=== PATIENT | male | born 1975 | race Caucasian/White ===

== ENCOUNTER → 2018-02-14 12:17 | Outpatient (CLI) | payer OTHER, MEDICAID, SELFPAY ==
--- NOTE | 2018-02-14 | DI.RAD.S_ITS ---
PROCEDURE: XR CHEST 2V INDICATIONS: RIGHT CHEST PAIN TECHNIQUE: 2 views of the chest were acquired. COMPARISON: [facility], RG, XR CXR 2V, 09/26/2003, 12:22. FINDINGS: Surgical changes and devices: None. Lungs and pleura: No pleural effusions or pneumothorax. Lungs are clear. Mediastinum: Mediastinal contours are normal. Heart size is normal. Bones and chest wall: No suspicious bony abnormalities. Soft tissues appear unremarkable. IMPRESSION: Normal for age, source of current symptoms is not seen. Dictated by: Neal Bey M.D. on 02/14/2018 at 13:12 Approved by: Neal Bey M.D. on 02/14/2018 at 13:12
== END ==
PROVIDERS: Family Provider Family Medicine; PCP Family Medicine; Visit Provider Family Medicine
DX: R07.9 Chest pain, unspecified (principal)
CPT/HCPCS: 71046

== ENCOUNTER → 2018-11-26 10:26 | Outpatient (CLI) | payer OTHER, MEDICAID, SELFPAY ==
--- NOTE | 2018-11-26 | DI.RAD.S_ITS ---
PROCEDURE: XR FOOT RT MIN 3V INDICATIONS: RIGHT FOOT PAIN TECHNIQUE: 3 views of the foot were acquired. COMPARISON: None. FINDINGS: Bones: No fractures or dislocations. No suspicious bony lesions. Mild first MTP joint degeneration. Prominent plantar calcaneal spur. Diffuse hindfoot and midfoot degenerative spurring. Exostosis projects off the posterior cortex of the distal tibia or fibula on the lateral view only. Irregular appearance of fifth toe proximal phalanx on one view only probably projectional Soft tissues: No tibiotalar joint effusion. Achilles tendon appears normal. IMPRESSION: No fracture identified. If the patient's pain or other symptoms persist, consider further evaluation with MRI Dictated by: Adis Jarrell M.D. on 11/26/2018 at 14:05 Approved by: Adis Jarrell M.D. on 11/26/2018 at 14:09
== END ==
PROVIDERS: Family Provider Family Medicine; PCP Family Medicine; Visit Provider Family Medicine
DX: M79.671 Pain in right foot (principal); M77.31 Calcaneal spur, right foot
CPT/HCPCS: 73630

== ENCOUNTER → 2018-12-11 19:13 | Outpatient (CLI) | payer OTHER, MEDICAID, SELFPAY ==
--- NOTE | 2018-12-11 19:15 | DI.MRI.S_ITS ---
PROCEDURE: MR FOOT RT WO CON INDICATIONS: RIGHT FOOT PAIN TECHNIQUE: Noncontrast sagittal T1 spin echo and T2 fast spin echo with fat saturation, long-axis T1 spin echo and T2 fast spin echo with fat saturation, short-axis T1 spin echo and T2 fast spin echo with fat saturation through the forefoot. COMPARISON: , CR, XR FOOT RT MIN 3V, 11/26/2018, 10:49. FINDINGS: Image quality: Excellent. Bones and joints: There is marked marrow edema present within the medial cuneiform. Possible incomplete, nondisplaced fracture line seen on image 26 series 4 although not confirmed on other pulse sequences. Soft tissues: The visualized plantar foot muscles demonstrate normal signal and bulk. Visualized flexor and extensor tendons appear intact, without tenosynovitis. The distal insertions of the peroneus brevis and longus tendons appear intact. The principal Lisfranc ligament appears intact. No soft tissue ganglion cysts or bursal fluid collections. Sagittal images demonstrate no evidence for plantar plate tears. IMPRESSION: Severe acute versus subacute marrow contusion involving the medial cuneiform. Possible incomplete, nondisplaced fracture line although technically indeterminate. Overlying soft tissue edema. Dictated by: Adis Jarrell M.D. on 12/12/2018 at 9:55 Approved by: Adis Jarrell M.D. on 12/12/2018 at 10:00
== END ==
PROVIDERS: Family Provider Family Medicine; PCP Family Medicine; Visit Provider Family Medicine
DX: M79.671 Pain in right foot (principal); S90.31XA Contusion of right foot, initial encounter
CPT/HCPCS: 73718

== ENCOUNTER → 2019-07-17 10:04 | Outpatient (CLI) | payer OTHER, MEDICAID, SELFPAY ==
--- NOTE | 2019-07-17 | DI.US.S_ITS ---
PROCEDURE: US EXTREMITY NONVASC LOWER LT INDICATIONS: LOCALIZED SWELLING, MASS AND LUMP, LT LOWER LIMB TECHNIQUE: Real-time scanning was performed of the area of current clinical concern, with image documentation. COMPARISON: None. FINDINGS: At the palpable area of left lateral 5 mass an underlying nodular soft tissue abnormality is found measuring up to 2.2 x 5.6 x 12.3 cm, with an appearance most likely represent an underlying lipoma with relatively low internal blood flow. IMPRESSION: The structure seen physically producing mild mass effect at the left lateral thigh appears to represent a lipoma by sonographic appearance. A more accurate assessment could be obtained utilizing contrast enhanced MR scanning. Clinical history of the mass was cyst in differentiating a lipoma from low grade liposarcoma. Surgical consultation may be warranted. Dictated by: Neal Bey M.D. on 07/17/2019 at 11:40 Approved by: Neal Bey M.D. on 07/17/2019 at 12:02
== END ==
PROVIDERS: Family Provider Family Medicine; PCP Family Medicine; Referring Provider Family Medicine; Visit Provider Family Medicine
DX: R22.42 Localized swelling, mass and lump, left lower limb (principal)
CPT/HCPCS: 76882

== ENCOUNTER 2019-08-13 12:26 | Day surgery (SDC) | payer OTHER, MEDICAID, SELFPAY ==
[2019-08-13] VITALS (7 sets, daily range): BP systolic 150–178; BP diastolic 90–118; PULSE 88–105; RESP 12–20; TEMP 36.8–37.1; O2SAT 92–95; BMI 42.4
[2019-08-13] MEDS: LACTATED RINGERS 1,000 ML 42 ML IV (13:25)
--- NOTE | 2019-08-13 14:04 | PM.PREOP ---
Pre-operative Note Interval Note History & Physical reviewed/Exam performed by Physician: Yes Changes to H&P: No
[2019-08-13] MEDS: CEFAZOLIN 2 GM/100 ML FROZ.PIGGY IV (14:17)
--- NOTE | 2019-08-13 14:37 | SUR.OPER ---
Lateral on padded OR bed, head on pillow, gel axillary roll in place, bottom leg bent with gel pad under knee to foot, upper leg straight and supported with pillows. Upper arm supported by pillows and secured over bottom arm to padded arm board. Safety belt at hip, tape over blanket lower legs. Left side up
[2019-08-13] MEDS: BUPIVACAINE 0.25% (PF) VIAL 30 ML INJ (14:42)
--- NOTE | 2019-08-13 15:14 | PM.OP.1 ---
Operative Date/Time/Diagnoses Date of procedure: 08/13/19 Time of procedure: 15:14 Pre-op diagnosis: Left thigh soft tissue mass Post-op diagnosis: same Procedure & Clinicians Procedure: Excision of left thigh soft tissue mass x 15 cm Same procedure as scheduled: Yes Indications: Symptomatic left thigh soft tissue mass x 15 cm Surgeon: Raul Liang Click Yes if Unassisted: No Anesthesia Type: General Operative Notes Findings: Consistent with lipoma Specimen(s): other (Left thigh soft tissue mass) Estimated Blood Loss (mL): 20 Procedure in detail: Patient was brought to the operating room placed supine on the table. Bilateral lower extremity compression devices were applied. He received Ancef prior to skin incision. General anesthesia was induced he was intubated with an endotracheal tube. He was then positioned into the right lateral decubitus position appropriately prepped padded with a wakefield bag and axillary roll. He was then prepped and draped in sterile fashion. Time-out was performed ensure the correct patient procedure necessary equipment within the operating room. He had been previously marked in the preoperative area over the area of concern on the left thigh. Incision was made in skin and the subcutaneous tissues were divided. A approximately 15 cm soft tissue mass consistent with a lipoma was observed above the layer of the fascia. It was excised in its entirety. It was passed off the field labeled as specimen. The wound was irrigated and hemostasis was achieved. And the subcutaneous tissues were closed in layers using Vicryl suture. The skin closed with interrupted nylon sutures. Sterile dressing was placed. He tolerated procedure well 0 extubated and transferred to recovery room in stable condition Complications: none Post-operative Condition: stable Disposition: same day surgery
[2019-08-13] MEDS: ONDANSETRON 4 MG/2 ML INJ IV (15:28)
[2019-08-13] MEDS: OXYCODONE/ACETAMINOPHEN 5/325 TABLET 1 TAB PO (15:28)
--- NOTE | 2019-08-13 15:59 | SUR.PHASEII ---
Stable, pain tolerable. Brother called, pt dressed and left when ready and left in stable condition.
== END 2019-08-13 15:59 | disposition home or self-care (01) ==
PROVIDERS: PCP Family Medicine; Referring Provider Surgery; Visit Provider Surgery
PROC: (CPT 27337; principal; 2019-08-13 13:45)
DX: D17.24 Benign lipomatous neoplasm of skin and subcutaneous tissue of left leg (principal); E66.9 Obesity, unspecified; G47.33 Obstructive sleep apnea (adult) (pediatric); R73.03 Prediabetes; F17.210 Nicotine dependence, cigarettes, uncomplicated; Z68.41 Body mass index [BMI] 40.0-44.9, adult
CPT/HCPCS: 27337; J0330; J0690; J1885; J2250; J2405; J2704; J3010

== ENCOUNTER → 2020-03-20 14:55 | Outpatient (CLI) | payer OTHER, MEDICAID, SELFPAY ==
--- NOTE | 2020-03-20 | DI.RAD.S_ITS ---
PROCEDURE: XR KNEE RT 3V INDICATIONS: KNEE PAIN TECHNIQUE: 4 views of the knee were acquired. COMPARISON: None. FINDINGS: Bones: No acute fractures or dislocations. No suspicious bony lesions. Prior fracture fixation plates and multiple transverse screws are noted along the proximal tibia, both laterally and to a lesser degree medially. Degenerative osteoarthritis at the medial compartment is [id number] and at the lateral compartment is moderately severe. Patellofemoral joint osteoarthritis is moderate best seen at the lateral facet. Soft tissues: A joint effusion or intra-articular loose body is not seen.. No suspicious soft tissue calcifications. IMPRESSION: Prior multiple fracture fixation procedure has been performed, with near normal anatomic alignment established and no evidence of device loosening or disruption. However, presumed posttraumatic degenerative osteoarthritis at the knee joint is moderate in severity overall and most prominent at the lateral compartment. An effusion or loose body is not associated, however. Dictated by: Neal Bey M.D. on 03/20/2020 at 15:42 Approved by: Neal Bey M.D. on 03/20/2020 at 15:44
--- NOTE | 2020-03-20 | DI.RAD.S_ITS ---
PROCEDURE: XR TIBIA FUBULA RT 2V INDICATIONS: RIGHT LEG PAIN TECHNIQUE: 2 views of the tibia and fibula were acquired. COMPARISON: None. FINDINGS: Bones: No acute fractures or dislocations. No suspicious bony lesions. Medial and lateral proximal tibial fixation devices are present establishing virtual anatomic alignment. Soft tissues: No suspicious soft tissue calcifications or masses. IMPRESSION: No device loosening or disruption is seen. Prior medial and lateral proximal tibial fractures have been corrected and have apparently healed in excellent anatomic alignment through the placement of a large lateral and a small medial buttressing plate with multiple transverse screws. Dictated by: Neal Bey M.D. on 03/20/2020 at 15:45 Approved by: Neal Bey M.D. on 03/20/2020 at 15:46
== END ==
PROVIDERS: PCP Family Medicine; Referring Provider Family Medicine; Visit Provider Family Medicine
DX: M25.561 Pain in right knee (principal); M17.11 Unilateral primary osteoarthritis, right knee; M79.604 Pain in right leg; Z87.81 Personal history of (healed) traumatic fracture
CPT/HCPCS: 73562; 73590

== ENCOUNTER → 2021-03-02 09:20 | Outpatient (CLI) | payer OTHER, MEDICAID, SELFPAY ==
[2021-03-02 11:02] LABS: COVID19 -Nasal RAPID Negative (Negative)
== END ==
PROVIDERS: PCP Family Medicine; Visit Provider Surgery
DX: Z01.812 Encounter for preprocedural laboratory examination (principal); Z20.822 Contact with and (suspected) exposure to COVID-19
CPT/HCPCS: 87635; C9803

== ENCOUNTER 2021-03-03 09:50 | Day surgery (SDC) | payer OTHER, MEDICAID, SELFPAY ==
[2021-03-01 07:40] VITALS: BMI 40.4
[2021-03-03] VITALS (9 sets, daily range): BP systolic 125–168; BP diastolic 60–97; PULSE 91–921; RESP 12–18; TEMP 36.3–36.9; O2SAT 90–97; BMI 40.4
[2021-03-03] MEDS: LACTATED RINGERS 1,000 ML 42 ML IV (10:04)
[2021-03-03] MEDS: LACTATED RINGERS 1,000 ML 100 ML IV (13:46)
[2021-03-03] MEDS: GABAPENTIN 300 MG CAPSULE PO (13:51)
[2021-03-03] MEDS: ACETAMINOPHEN 325 MG TABLET 975 MG PO (13:51)
--- NOTE | 2021-03-03 14:45 | PM.PREOP ---
Pre-operative Note Interval Note History & Physical reviewed/Exam performed by Physician: Yes Changes to H&P: No
[2021-03-03] MEDS: ALBUTEROL 2.5 MG/3 ML NEB (ADULT) INH (15:08)
[2021-03-03] MEDS: CEFAZOLIN 1 GM VIAL 3 GM IV (15:29)
[2021-03-03] MEDS: BUPIVACAINE 0.25% (PF) VIAL 30 ML INJ (15:42)
--- NOTE | 2021-03-03 16:15 | PM.OP.1 ---
Operative Date/Time/Diagnoses Date of procedure: 03/03/21 Time of procedure: 16:15 Pre-op diagnosis: Umbilical hernia Post-op diagnosis: same Procedure & Clinicians Procedure: Open umbilical hernia repair Same procedure as scheduled: Yes Indications: Reducible umbilical hernia Surgeon: Raul Liang Click Yes if Unassisted: Yes Anesthesia Type: General Operative Notes Findings: 1.5 cm fascial defect containing viable omentum Estimated Blood Loss (mL): 20 Procedure in detail: Patient was brought to the operating room placed supine on the table. Bilateral lower extremity compression devices were applied. General anesthesia was induced and they were intubated with an endotracheal tube. They received 3 g of Ancef prior to skin incision. They were prepped and draped in sterile fashion. A time-out was performed. A curvilinear incision was made inferior to the umbilicus. The subcutaneous tissues were divided. The umbilical hernia was identified and the hernia sac was dissected off the umbilical skin and circumferentially off of the fascia defect. The hernia sac was sharply opened and contained viable omentum. The omentum was reduced back into the abdomen. Using blunt dissection I carefully carefully freed the hernia sac from beneath the fascia defect in order to accomodate the mesh. The fascia defect was 1.5 cm in maximal diameter. A Bard Ventralex ST hernia patch 4 cm was inserted beneath the fascia defect and above the peritoneum in a sublay position. The mesh was anchored in multiple locations using Ethibond suture to the fascia and the fascial defect was closed over the mesh. The umbilical skin was tacked to the subcutaneous tissues and then the remainder of the subcutaneous tissues were reapproximated using 3 0 Vicry,l skin closed with 4 0 Monocryl followed by the application of Dermabond and Steri-Strips. Sponge instrument count at the end of the operation was correct. Patient tolerated procedure well was extubated and transferred to postoperative care unit in stable condition. Complications: none Post-operative Condition: stable Disposition: same day surgery
[2021-03-03] MEDS: fentaNYL 100 MCG/2 ML INJ IV ×2 (16:17→16:30)
[2021-03-03] MEDS: OXYCODONE IR 5 MG TABLET PO ×2 (16:35→17:09)
--- NOTE | 2021-03-03 16:35 | SUR.PHASEI ---
Recieved to PACU after general anesthesia. Airway patent, self maintained. Report from Dr Chacon and DASHAWN Harris.
--- NOTE | 2021-03-03 16:43 | SUR.PHASEI ---
Instructed on use of incentive spirometer. Pt up to 2500 ml.
--- NOTE | 2021-03-03 16:47 | SUR.PHASEI ---
report given to DASHAWN Alfaro.
== END 2021-03-03 17:23 | disposition home or self-care (01) ==
PROVIDERS: PCP Family Medicine; Referring Provider Surgery; Visit Provider Surgery
PROC: (CPT 49585; principal; 2021-03-03 14:15)
DX: K42.9 Umbilical hernia without obstruction or gangrene (principal); E66.01 Morbid (severe) obesity due to excess calories; G47.33 Obstructive sleep apnea (adult) (pediatric); I10 Essential (primary) hypertension; E11.9 Type 2 diabetes mellitus without complications; F17.200 Nicotine dependence, unspecified, uncomplicated; Z79.84 Long term (current) use of oral hypoglycemic drugs; Z68.41 Body mass index [BMI] 40.0-44.9, adult
CPT/HCPCS: 49585; 82962; C1781; J0330; J0690; J1885; J2250; J2405; J2704; J3010; J7613

== ENCOUNTER → 2021-11-16 11:31 | Outpatient (CLI) | payer OTHER, MEDICAID, SELFPAY ==
--- NOTE | 2021-11-16 11:33 | DI.RAD.S_ITS ---
PROCEDURE: XR CHEST 2V INDICATIONS: Cough TECHNIQUE: 2 views of the chest were acquired. COMPARISON: [facility], CR, XR CHEST 2V, 02/14/2018, 12:02. FINDINGS: Surgical changes and devices: None. Lungs and pleura: Lungs are clear. No pleural effusions or pneumothorax. Mediastinum: Mediastinal contours are normal. Heart size is normal. Bones and chest wall: No suspicious bony abnormalities. Soft tissues appear unremarkable. IMPRESSION: No acute cardiopulmonary process demonstrated radiographically. Dictated by: Buzz Dumont M.D. on 11/16/2021 at 12:06 Approved by: Buzz Dumont M.D. on 11/16/2021 at 12:07
== END ==
PROVIDERS: PCP Family Medicine; Referring Provider Family Medicine; Visit Provider Family Medicine
DX: R05.9 Cough, unspecified (principal)
CPT/HCPCS: 71046

== ENCOUNTER → 2022-02-10 14:20 | Outpatient (CLI) | payer OTHER, MEDICAID, SELFPAY ==
--- NOTE | 2022-02-10 | DI.RAD.S_ITS ---
PROCEDURE: XR KNEE RT 3V INDICATIONS: Pain in right knee TECHNIQUE: 3 views of the knee were acquired. COMPARISON: [facility], , XR KNEE RT 3V, 03/20/2020, 14:54. FINDINGS: Bones: There is prior internal fixation of proximal tibia with surgical hardware positions grossly unchanged from prior study. No evidence of hardware loosening or failure. No acute fractures or dislocations. Irwi-ri-iudxsysv tricompartmental osteoarthritis is seen. No suspicious bony lesions. Soft tissues: There is small to moderate suprapatellar joint effusion. Calcifications are noted along medial aspect of right knee joint suggestive of old injury involving medial collateral ligament unchanged from prior study. IMPRESSION: Prior fixation of proximal tibial shaft. No acute fracture or dislocation. No gross hardware complication. Xcke-eo-qtvjfaiu tricompartmental osteoarthritis and moderate suprapatellar joint effusion. Dictated by: Miguel A Sanchez M.D. on 02/10/2022 at 17:05 Approved by: Miguel A Sanchez M.D. on 02/10/2022 at 17:06
== END ==
PROVIDERS: PCP Family Medicine; Referring Provider Family Medicine; Visit Provider Family Medicine
DX: M25.561 Pain in right knee (principal); M17.11 Unilateral primary osteoarthritis, right knee; M25.461 Effusion, right knee
CPT/HCPCS: 73562

== ENCOUNTER → 2022-04-28 12:21 | Outpatient (CLI) | payer OTHER, MEDICAID, SELFPAY ==
--- NOTE | 2022-04-28 12:25 | DI.RAD.S_ITS ---
PROCEDURE: XR RIBS BI MIN 4V W CXR1V INDICATIONS: CHEST TECHNIQUE: For views of the bilateral ribs were acquired, along with a single view chest. COMPARISON: None. FINDINGS: Surgical changes and devices: None. Bones and chest wall: No fractures or dislocations. No suspicious bony lesions. Overlying soft tissues appear unremarkable. Lungs and pleura: No pleural effusions or pneumothorax. Lungs appear clear. Mediastinum: Mediastinal contours appear normal. Heart size is normal. IMPRESSION: Patient motion during image acquisition of the individual rib plain films results in relatively poor quality visualization, without fracture found. If unusual symptoms persist follow-up delayed plain films may allow visualization of a currently not visualized fracture. No pneumothorax suspected. Dictated by: Neal Bey M.D. on 04/29/2022 at 16:14 Approved by: Neal Bey M.D. on 04/29/2022 at 16:16
== END ==
PROVIDERS: PCP Family Medicine; Referring Provider Registered Nurse; Visit Provider Registered Nurse
DX: S20.20XA Contusion of thorax, unspecified, initial encounter (principal)
CPT/HCPCS: 71111

== ENCOUNTER → 2022-05-09 12:38 | Outpatient (CLI) | payer OTHER, MEDICAID, SELFPAY ==
[2022-05-09 13:18] LABS: Add Manual Diff / Slide Review NO; Basophils Absolute Auto 100 /uL (0-100); Basophils Percent Auto 0.7 % (0-2); Eosinophils Absolute Auto 100 /uL (0-450); Eosinophils Percent Auto 0.8 % (2-4); Hematocrit 43.1 % (41-53); Lymphocytes Absolute Auto 1700 /uL (1100-4500); Lymphocytes Percent Auto 19.1 % (25-40); Mean Corpuscular HGB Conc 34.9 % (30-36); Mean Corpuscular Hemoglobin 36.4 PG (26-34); Mean Corpuscular Volume 104.4 fL (80-100); Monocytes Absolute Auto 900 /uL (0-900); Monocytes Percent Auto 9.5 % (3-14); Neutrophils Absolute Auto 6200 /uL (1500-7000); Neutrophils Percent Auto 69.9 % (50-75); Platelet Count 315 X10^3/uL (150-400); Red Blood Cell Count 4.13 X10^6/uL (4.5-5.9); Red Cell Distribution Width 13.8 % (11.6-14.8); White Blood Cell Count 8.9 X10^3/uL (4.5-11.0)
== END ==
PROVIDERS: PCP Family Medicine; Referring Provider Family Medicine; Visit Provider Family Medicine
DX: K62.5 Hemorrhage of anus and rectum (principal)
CPT/HCPCS: 36415; 85025

== ENCOUNTER → 2022-05-16 10:03 | Outpatient (CLI) | payer OTHER, MEDICAID, SELFPAY ==
[2022-05-16 11:24] LABS: COVID19 -Nasal RAPID Negative (Negative)
== END ==
PROVIDERS: PCP Family Medicine; Visit Provider Surgery
DX: Z20.822 Contact with and (suspected) exposure to COVID-19 (principal); Z01.812 Encounter for preprocedural laboratory examination
CPT/HCPCS: 87635; C9803

== ENCOUNTER 2022-05-17 10:26 | Day surgery (SDC) | payer OTHER, MEDICAID, SELFPAY ==
--- NOTE | 2022-05-17 | PATH_ITS ---
[facility] Accession Number: [id number] . 01 Material submitted: . PART A: rectum - RECTUM PART B: colon - DESCENDING COLON. Modifiers: descending . 01 Diagnosis: A. Rectum, Biopsy: Hyperplastic polyp. . B. Descending Colon, Biopsy: Tubular adenoma. The excision appears complete. [facility] 05/19/2022 1015 Local . 01 Electronically signed: . Lisette Beatty MD, Pathologist NPI- [id number] . 01 Gross description: . Part A: RECTUM: Received in formalin is 1 fragment(s) of potter, soft tissue measuring 0.3 x 0.3 x 0.3 cm submitted entirely in 1 cassette(s) Part B: DESCENDING COLON: Received in formalin is 1 fragment(s) of potter, soft tissue measuring 1.3 x 0.6 x 0.6 cm submitted entirely in 1 cassette(s) /LANI 05/18/2022 1835 Local . 01 Pathologist provided ICD-10: D12.4 . 01 CPT . 546370, [id number] Performed at: 01 [facility] [address] [place] [address] [id number] MD Fredy Wolf MD Phone: [phone]
[2022-05-17 11:09] VITALS: BP 146/98; PULSE 105; RESP 20; TEMP 36.2; O2SAT 96; BMI 36.9
[2022-05-17] MEDS: LACTATED RINGERS 1,000 ML 200 ML IV (11:16)
--- NOTE | 2022-05-17 12:24 | PM.HP.1 ---
History of Present Illness History of Present Illness Date Patient Seen: 05/17/22 Time Patient Seen: 12:24 Chief complaint: Colonoscopy Narrative: The patient presents for colorectal screening. They have never had any previous examination for such. No personal or family history of colon cancer. On further history denies any recent gastrointestinal symptoms. No nausea, vomiting, abdominal pain, loss of appetite, unexplained weight loss, change in bowel habits, diarrhea, constipation, melena, hematochezia, or bright red blood per rectum. 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 traumatic injury Morbid obesity with body mass index (BMI) of 40.0 to 49.9 Nocturnal hypoxemia Obstructive sleep apnea Pre-diabetes Snoring Surgical History (Updated 03/01/21 @ 07:51 by Saritha Linn RN) History of surgery S/P excision of lipoma (08/13/19) Family & Social History Social History: household members family Tobacco & Substance use: Tobacco type cigarettes Smoking Status Current every day smoker alcohol intake current alcohol intake frequency a few times a week Substance Use Type marijuana Meds Home Medications and Allergies Home Medications Medication Instructions Recorded Confirmed Type hydrocodone 5 mg-acetaminophen 325 1 tab PO Q4HR PRN Pain (Scale 02/21/19 05/17/22 History mg tablet Score 1-3) celecoxib 200 mg capsule 200 mg PO DAILY 05/17/22 05/17/22 History fluoxetine 20 mg capsule 20 mg PO DAILY 05/17/22 05/17/22 History fluoxetine 40 mg capsule 40 mg PO DAILY 05/17/22 05/17/22 History glipizide 10 mg tablet, extended 10 mg PO DAILY 05/17/22 05/17/22 History release 24 hr losartan 100 mg tablet 100 mg PO DAILY 05/17/22 05/17/22 History trazodone 50 mg tablet 50 mg PO DAILY 05/17/22 05/17/22 History Allergies Allergy/AdvReac Type Severity Reaction Status Date / Time No Known Drug Allergies Allergy Verified 05/17/22 10:56 Exam Vital Signs (past 8 hours): - 05/17/22 11:09 Temperature 97.1 F L Pulse Rate 105 H Respiratory Rate 20 Blood Pressure 146/98 H Pulse Oximetry 96 Oxygen Delivery Method Room Air Oxygen Delivery Method Room Air Narrative Exam Narrative: General adult male alert oriented no acute distress Abdomen soft nontender nondistended Assessment & Plan Assessment & Plan narrative: The patient requires colorectal screening and colonoscopy is recommended. Technical details were discussed. Risks, benefits, alternatives explained. Risks including but not limited to myocardial infarction, aspiration, bleeding, pain, missed lesion, incomplete examination, need for further radiographic studies, colonic perforation, and need for major abdominal surgery were discussed. All questions were answered to their satisfaction, and they are in agreement with this plan. Time Spent With Patient Critical Care time: I spent a total of [] minutes of critical care time on this patient's care today; this time is exclusive of procedural time.
--- NOTE | 2022-05-17 12:25 | PM.OP.COLON ---
Operative Date/Time/Diagnoses Date of procedure: 05/17/22 Time of procedure: 12:25 Pre-op diagnosis: Screening colonoscopy Post-op diagnosis: same Procedure & Clinicians Study performed: Colonoscopy Same procedure as scheduled: Yes Indications: Screening Surgeon: Raul Liang Procedure Notes Procedure in detail: The history and physical was performed/updated and the patient is ASA class is 3. The procedure was discussed in detail with the patient. Potential risks complications including infection, bleeding, missed diagnosis, perforation, need for surgery, and were explained. Their questions were answered and informed consent was obtained. Patient was brought to the procedure room and placed standard monitoring equipment. The patient's vital signs were monitored continuously throughout the entire procedure. Prior to starting time-out was performed. The patient was placed in the left lateral recumbent position. Procedural sedation was administered by anesthesia. Examination began with a thorough inspection of the perianal area there was no evidence of fissures, fistulae, external hemorrhoids or cutaneous malignancy. The colonoscopy scope was then placed into the anal canal and was advanced to the cecum, which was identified by the ileocecal valve, the appendiceal orifice and the confluence of the taenia. The scope was then slowly withdrawn examining colon thoroughly in all directions, irrigating it of any residual stool. FINDINGS 1. Rectum-5 mm polyp removed with forceps. 2.descending colon. 1.5 cm pedunculated polyp on a long stalk remove with hot snare. Area distal to the polyp was tattooed with ink. The patient tolerated the procedure well. They will be discharged once criteria are met. The prep was of good/excellent quality. The withdrawl time was 15 minutes. Specimen(s): other (Rectal and descending colon polyps) Complications: none Impression: Colonic polyps Post-procedure Plan for aftercare: Follow-up dependent on pathology findings Disposition: same day surgery
[2022-05-17 12:59] VITALS: BP 116/80; PULSE 84; RESP 22; TEMP 36.4; O2SAT 94
[2022-05-17 13:05] VITALS: BP 146/92; PULSE 91; RESP 16; O2SAT 95
[2022-05-17 13:11] VITALS: BP 147/84; PULSE 88; RESP 18; O2SAT 94
[2022-05-17 13:17] VITALS: BP 148/99; PULSE 86; RESP 16; TEMP 36.7; O2SAT 95
== END 2022-05-17 13:33 | disposition home or self-care (01) ==
PROVIDERS: PCP Family Medicine; Referring Provider Surgery; Visit Provider Surgery
PROC: 0DJD8ZZ Inspection of Lower Intestinal Tract, Via Natural or Artificial Opening Endoscopic (ICD-10-PCS; CPT 45378; principal; 2022-05-17 11:45)
DX: Z12.11 Encounter for screening for malignant neoplasm of colon (principal); G47.33 Obstructive sleep apnea (adult) (pediatric); D12.4 Benign neoplasm of descending colon; K62.1 Rectal polyp
CPT/HCPCS: 45385; 45380; 45381; J2704; J3010

== ENCOUNTER 2023-01-20 00:06 | Inpatient (IN) | payer OTHER, MEDICAID, SELFPAY ==
[2023-01-20] VITALS (20 sets, daily range): BP systolic 103–198; BP diastolic 55–104; PULSE 78–113; RESP 15–28; TEMP 36.5–39.6; O2SAT 92–99; BMI 35.5; BMI 37.3
--- NOTE | 2023-01-20 00:10 | DI.RAD.S_ITS ---
PROCEDURE: XR CHEST 1V INDICATIONS: suspected sepsis TECHNIQUE: One view of the chest was acquired. COMPARISON: [facility], CR, XR CHEST 2V, 11/16/2021, 11:20. FINDINGS: Surgical changes and devices: None. Lungs and pleura: Lungs are clear. No pleural effusions or pneumothorax. Mediastinum: Mediastinal contours appear normal. Heart size is normal. Bones and chest wall: No suspicious bony lesions. Overlying soft tissues appear unremarkable. IMPRESSION: 1. No acute cardiopulmonary disease. Dictated by: Fredy Delong M.D. on 01/20/2023 at 0:59 Approved by: Fredy Delong M.D. on 01/20/2023 at 1:00
[2023-01-20] MEDS: SODIUM CHLORIDE 0.9% 1,000 ML 1000 ML IV (00:15)
[2023-01-20 00:31] LABS: INR 1.2 (0.9-1.3); Prothrombin Time 13.5 SECONDS (10.1-12.7)
[2023-01-20 00:33] LABS: Add Manual Diff / Slide Review NO; Basophils Absolute Auto 100 /uL (0-100); Basophils Percent Auto 0.3 % (0-2); Eosinophils Absolute Auto 0 /uL (0-450); Hematocrit 40.6 % (41-53); Hemoglobin 14.2 g/dL (13.5-17.5); Lymphocytes Absolute Auto 1000 /uL (1100-4500); Mean Corpuscular Hemoglobin 35.3 PG (26-34); Mean Corpuscular Volume 100.9 fL (80-100); Monocytes Absolute Auto 800 /uL (0-900); Monocytes Percent Auto 3.9 % (3-14); Neutrophils Absolute Auto 18900 /uL (1500-7000); Neutrophils Percent Auto 90.8 % (50-75); PTT Partial Thromboplastin Tim 29 SECONDS (26-36); Platelet Count 262 X10^3/uL (150-400); Red Blood Cell Count 4.02 X10^6/uL (4.5-5.9); Red Cell Distribution Width 12.6 % (11.6-14.8); White Blood Cell Count 20.8 X10^3/uL (4.5-11.0)
[2023-01-20 00:36] LABS: Alanine Aminotransferase 37 IU/L (<50); Albumin 3.7 g/dL (3.5-5.0); Albumin Globulin Ratio 1.1 (1.0-2.8); Alkaline Phosphatase 86 U/L (38-126); Aspartate Aminotransferase 38 IU/L (17-59); BUN Creatinine Ratio 17.6 (6-22); Bilirubin Total 0.4 mg/dL (0.2-1.3); Blood Urea Nitrogen 16 mg/dL (9-20); Calcium 7.8 mg/dL (8.4-10.2); Carbon Dioxide 24 mmol/L (22-32); Chloride 94 mmol/L (98-107); Estimated Glomerular Filt Rate > 60 mL/min (>60); Globulin 3.4 g/dL (1.7-4.1); Glucose 139 mg/dL (70-100); HEMOLYSIS 39 (0-50); Lipase 98 U/L (23-300); Potassium 3.1 mmol/L (3.4-5.1); Sodium 131 mmol/L (137-145); Total Protein 7.1 g/dL (6.3-8.2)
[2023-01-20 00:39] LABS: Lactate (Lactic Acid) 4.2 mmol/L (0.7-2.1)
[2023-01-20] MEDS: KETOROLAC 30 MG/ML VIAL 15 MG IV (00:52)
[2023-01-20] MEDS: ACETAMINOPHEN 325 MG TABLET 975 MG PO (00:53)
[2023-01-20] MEDS: SODIUM CHLORIDE 0.9% 1156.66 ML IV (00:55)
[2023-01-20 00:56] LABS: Creatine Kinase 79 U/L (55-170)
[2023-01-20] MEDS: PIPERACILLIN/TAZO 4.5 GM in SODIUM CHLORIDE 0.9% 100 ML IV (00:56)
[2023-01-20 00:57] LABS: Bacteria Urine None Seen; Culture Indicated Urine Cult Not Indicated; RBC Urine None Seen (0-5/HPF); Squamous Epithelial Cell Urine None Seen (0-5/HPF); WBC Urine 0-1/HPF (0-5/HPF)
[2023-01-20 01:08] LABS: Ur Creatinine Normal (Normal); Ur Specific Gravity Normal (Normal); Urine pH Normal (Normal)
[2023-01-20 01:09] LABS: UR Morphine/Opiate cutoff 300 Positive (Negative); Urine Amphetamines Negative (Negative); Urine Barbiturates Negative (Negative); Urine Benzodiazepines Negative (Negative); Urine Cocaine Negative (Negative); Urine MDMA Negative (Negative); Urine Methadone Negative (Negative); Urine Methamphetamines Negative (Negative); Urine Oxycodone Negative (Negative); Urine Phencyclidine Negative (Negative); Urine Tetrahydrocannabinol Positive (Negative); Urine Tricyclic Antidepressant Negative (Negative)
[2023-01-20 01:09] LABS: Troponin I 0.012 ng/mL (0.01-0.034)
--- NOTE | 2023-01-20 01:18 | DI.CT.S_ITS ---
PROCEDURE: CT ABDOMEN PELVIS W CON INDICATIONS: sepsis back pain ab pain TECHNIQUE: After the administration of IV contrast, axial sections were acquired from the lung bases to the pubic symphysis. Coronal and sagittal reformats were performed. For radiation dose reduction, the following was used: automated exposure control, adjustment of mA and/or kV according to patient size. COMPARISON: None. FINDINGS: Image quality: Excellent. Lung bases: Unremarkable. Heart: Heart is normal in size. ABDOMEN: Liver: There is hypoattenuation of the liver consistent with fatty infiltration. Gallbladder: Within normal limits without calcified gallstones. Biliary ducts: No biliary ductal dilatation. Pancreas: Unremarkable. Spleen: Normal in size. Adrenal Glands: No adrenal nodules. Kidneys and Ureters: No hydronephrosis. There is mild nonspecific perinephric stranding. Stomach and Bowel: Stomach, small bowel loops, and colon are normal in caliber and wall thickness. No pericecal inflammatory changes to suggest appendicitis. There is colonic diverticulosis without acute diverticulitis. Peritoneum: No abnormal intraperitoneal fluid. No free air. Ventral Wall: No hernia. Abdominal Nodes: No retroperitoneal or mesenteric adenopathy by size criteria. Vessels: Aorta and inferior vena cava are normal in size. PELVIS: Pelvic Organs: Unremarkable. Bladder: Unremarkable. Pelvic Nodes: No enlarged lymph nodes. Miscellaneous: No inguinal hernias are seen. Bones: Visualized osseous structures demonstrate no suspicious focal lesions. IMPRESSION: 1. Mild nonspecific perinephric stranding without hydronephrosis. Recommend correlation clinically for possible pyelonephritis. 2. Elsewhere, no definite acute intra-abdominal abnormality. 3. Colonic diverticulosis without acute diverticulitis. 4. Hepatic steatosis. Dictated by: Fredy Delong M.D. on 01/20/2023 at 2:00 Approved by: Fredy Delong M.D. on 01/20/2023 at 2:03
--- NOTE | 2023-01-20 01:19 | ED.FEVER ---
HPI - Fever General Chief Complaint: Fever Stated Complaint: N, dizzy, fever Time Seen by Provider: 01/20/23 00:40 Source: patient and EMS Mode of arrival: EMS History of Present Illness HPI Narrative: Patient is a 47-year-old male history of diabetes hypertension presenting today with her and body aches some left thigh pain. He reports that he was well yesterday and well this morning it came quite suddenly. He was very sleepy he has a fever. He really is complaining of some left thigh pain. There is some mild redness there he denies any injury he is not sure why that would hurt. He denies any cough headache or neck pain. No sore throat. Minimal abdominal pain. He generally does not feel well. He reports that his right leg was crushing injury many years ago he takes some opiate medication for that as well. He has a fever of 103.3 and as tachycardic initially in the ED. Related Data Home Medications Medication Instructions Recorded Confirmed hydrocodone 5 mg-acetaminophen 325 1 tab PO Q4HR PRN Pain (Scale 02/21/19 01/20/23 mg tablet Score 1-3) fluoxetine 20 mg capsule 20 mg PO DAILY 05/17/22 01/20/23 fluoxetine 40 mg capsule 40 mg PO DAILY 05/17/22 01/20/23 trazodone 50 mg tablet 50 mg PO DAILY 05/17/22 01/20/23 Allergies Allergy/AdvReac Type Severity Reaction Status Date / Time No Known Drug Allergies Allergy Verified 05/17/22 10:56 Review of Systems Review of Systems ROS Unobtainable: All systems reviewed & are unremarkable except as noted in HPI and below Patient History Medical History (Updated 01/20/23 @ 03:20 by Zina Crisostomo DO) Chronic pain after traumatic injury Morbid obesity with body mass index (BMI) of 40.0 to 49.9 Nocturnal hypoxemia Obstructive sleep apnea Pre-diabetes Snoring Surgical History (Updated 03/01/21 @ 07:51 by Saritha Linn RN) History of surgery S/P excision of lipoma (08/13/19) Social History household members: family Smoking Status: Current every day smoker alcohol intake: current Smoking Status: Current every day smoker alcohol intake frequency: a few times a week Substance Use Type: marijuana Exam Initial Vital Signs Initial Vital Signs: Vital Signs Temperature 103.3 F H 01/20/23 00:07 Pulse Rate 113 H 01/20/23 00:07 Respiratory Rate 26 H 01/20/23 00:07 Blood Pressure 154/74 H 01/20/23 00:07 Pulse Oximetry 98 01/20/23 00:07 Oxygen Delivery Method Room Air 01/20/23 00:07 GENERAL: Alert 47-year-old male appears to not feel well HEENT: Head atraumatic,EOMI, pupils reactive, face symmetric, moist mucous membranes CARDIOVASCULAR: Regular rate and rhythm without murmurs, rubs or gallops. RESPIRATORY: Breath sounds equal bilaterally, no wheezes rales or rhonchi. ABDOMEN: Soft, nontender. Normoactive bowel sounds all 4 quadrants. No guarding or rebound. EXTREMITIES: Normal range of motion, no clubbing or edema. Neurovascularly intact NEUROLOGICAL: Alert and oriented x4.Normal gait and speech. SKIN: Chronic venous stasis noted on bilateral legs. Left leg is mildly more red than the right. Right medial thigh there is a small patch of erythema there is no abscess it is tender to touch it does not extend into the groin Course Orders Ordered: ED Orders 01/20/23 00:10 XR chest 1V Stat Complete Blood Count AUTO DIFF Stat Comprehensive Metabolic Panel Stat Lactate (Lactic Acid) Stat Lipase Stat PTT Partial Thromboplastin Bertin Stat Procalcitonin Stat Prothrombin Time INR Stat RT Consult Eval and Treat NOW 01/20/23 00:19 Urine Drug Screen, Rapid Stat Urine Microscopic Stat 01/20/23 00:20 Troponin & CK Cardiac Panel Stat 01/20/23 00:28 Blood Culture Stat 01/20/23 01:04 Respiratory Panel (Film Array) Stat 01/20/23 01:18 CT abdomen pelvis w con Stat Acetaminophen (Acetaminophen 325 Mg Tablet) 650 mg PO Q6H EDWARD Last Admin: 01/20/23 04:36 Dose: 650 mg Documented By: Hydrocodone Bitart/Acetaminophen (Hydrocodone/Acet 5/325 Tablet) 1 tab PO Q4H PRN PRN Reason: Pain, Moderate (4-6) Calcium Carbonate (Calcium Carbonate 500 Mg Tab) 1,000 mg PO Q4HR PRN PRN Reason: Dyspepsia Enoxaparin Sodium (Enoxaparin 40 Mg/0.4 Ml Syringe) 40 mg SUBCUT DAILY [facility] Hydromorphone HCl (Hydromorphone 0.5 Mg Inj) 0.5 mg IV Q2H PRN PRN Reason: Pain, Severe (7-10) Last Admin: 01/20/23 04:36 Dose: 0.5 mg Documented By: Sodium Chloride (Normal Saline 0.9%) 1,000 mls @ 100 mls/hr IV CONT [facility] Last Admin: 01/20/23 04:31 Dose: 100 mls/hr Documented By: Piperacillin Sod/Tazobactam (Sod 3.375 gm/ Sodium Chloride) 100 mls @ 25 mls/hr IV Q8H [facility] Last Admin: 01/20/23 04:35 Dose: 25 mls/hr Documented By: MS Vancomycin HCl/Dextrose (Vancomycin) 3,000 mg in 600 mls @ 150 mls/hr IV NOW ONE Stop: 01/20/23 09:59 Last Admin: 01/20/23 06:01 Dose: 150 mls/hr Documented By: Vancomycin HCl/Dextrose (Vancomycin) 2,000 mg in 400 mls @ 200 mls/hr IV Q12H [facility] Naloxone HCl (Naloxone 0.4 Mg/Ml Vial) 0.2 mg IV Q2MIN PRN PRN Reason: Opiate Reversal Ondansetron HCl (Ondansetron 4 Mg/2 Ml Inj) 4 mg IV NOW PRN PRN Reason: Nausea And Vomiting Ondansetron HCl (Ondansetron 4 Mg Odt) 4 mg SL NOW PRN PRN Reason: Nausea And Vomiting Ondansetron HCl (Ondansetron 4 Mg/2 Ml Inj) 4 mg IV Q8HR PRN PRN Reason: Nausea And Vomiting Vancomycin HCl (Vancomycin Per Pharmacy) 1 request MISC NOW ONE Stop: 01/20/23 05:05 Discontinued Medications Acetaminophen (Acetaminophen 325 Mg Tablet) 975 mg PO NOW ONE Stop: 01/20/23 00:43 Last Admin: 01/20/23 00:53 Dose: 975 mg Documented By: NATALIE Sodium Chloride (Normal Saline 0.9%) 1,000 mls @ 1,000 mls/hr IV BOLUS ONE Stop: 01/20/23 01:09 Last Infusion: 01/20/23 01:15 Dose: 0 mls/hr Documented By: Admin: 01/20/23 00:15 Dose: 1,000 mls/hr Documented By: NATALIE Sodium Chloride (Normal Saline 0.9%) 3,469.98 mls @ 1,156.66 mls/hr 30 ml/kg infuse over 3 hr (3469.98 ml) IV NOW ONE Stop: 01/20/23 03:41 Last Infusion: 01/20/23 03:55 Dose: 0 mls/hr Documented By: Admin: 01/20/23 00:55 Dose: 1,156.66 mls/hr Documented By: NATALIE Piperacillin Sod/Tazobactam (Sod 4.5 gm/ Sodium Chloride) 100 mls @ 200 mls/hr IV NOW ONE Stop: 01/20/23 00:43 Last Infusion: 01/20/23 01:34 Dose: 0 mls/hr Documented By: Admin: 01/20/23 00:56 Dose: 200 mls/hr Documented By: NATALIE Piperacillin Sod/Tazobactam (Sod 4.5 gm/ Sodium Chloride) 100 mls @ 25 mls/hr IV Q8H [facility] Last Admin: 01/20/23 06:54 Dose: Not Given Documented By: SILVER Ketorolac Tromethamine (Ketorolac 30 Mg/Ml Vial) 15 mg IV NOW ONE Stop: 01/20/23 00:43 Last Admin: 01/20/23 00:52 Dose: 15 mg Documented By: NATALIE Morphine Sulfate (Morphine 4 Mg/Ml Inj) 4 mg IV NOW ONE Stop: 01/20/23 02:23 Last Admin: 01/20/23 02:26 Dose: 4 mg Documented By: NATALIE Vital Signs Vital signs: Vital Signs - 8 hr 01/20/23 00:07 01/20/23 00:18 01/20/23 00:30 Temperature 103.3 F H Pulse Rate 113 H 109 H Respiratory Rate 26 H 18 Blood Pressure 154/74 H 103/55 L Pulse Oximetry 98 94 Oxygen Delivery Method Room Air 01/20/23 00:30 01/20/23 00:52 01/20/23 00:53 Temperature 103.3 F H 103.3 F H Pulse Rate 110 H Respiratory Rate 16 Blood Pressure Pulse Oximetry 94 Oxygen Delivery Method 01/20/23 01:00 01/20/23 01:00 01/20/23 01:30 Temperature Pulse Rate 104 H Respiratory Rate 15 Blood Pressure 104/58 L 108/57 L Pulse Oximetry 94 Oxygen Delivery Method 01/20/23 01:30 01/20/23 02:00 01/20/23 02:00 Temperature 100.4 F H Pulse Rate 100 H 99 H Respiratory Rate 15 28 H Blood Pressure 116/58 L Pulse Oximetry 94 93 Oxygen Delivery Method Room Air 01/20/23 02:26 01/20/23 02:30 01/20/23 02:30 Temperature 100.4 F H Pulse Rate 94 H Respiratory Rate 21 Blood Pressure 117/58 L Pulse Oximetry 93 Oxygen Delivery Method 01/20/23 03:00 01/20/23 03:00 Temperature Pulse Rate 94 H Respiratory Rate 26 H Blood Pressure 123/58 L Pulse Oximetry 92 Oxygen Delivery Method Room Air MDM - Fever Lab Data 01/20/23 07:05 01/20/23 00:10 Labs: Lab Results 01/20/23 01/20/23 01/20/23 Range/Units 00:10 00:10 00:10 WBC 20.8 H (4.5-11.0) X10^3/uL RBC 4.02 L (4.5-5.9) X10^6/uL Hgb 14.2 (13.5-17.5) g/dL Hct 40.6 L (41-53) % MCV 100.9 H (80-100) fL MCH 35.3 H (26-34) PG MCHC 35.0 (30-36) % RDW 12.6 (11.6-14.8) % Plt Count 262 (150-400) X10^3/uL Neut % (Auto) 90.8 H (50-75) % Lymph % (Auto) 5.0 L (25-40) % Swisher % (Auto) 3.9 (3-14) % Eos % (Auto) 0.0 L (2-4) % Baso % (Auto) 0.3 (0-2) % Neut # (Auto) 90397 H (0363-3841) /uL Lymph # (Auto) 1000 L (7058-6172) /uL Swisher # (Auto) 800 (0-900) /uL Eos # (Auto) 0 (0-450) /uL Baso # (Auto) 100 (0-100) /uL ESR (0-15) MM/HR PT 13.5 H (10.1-12.7) SECONDS INR 1.2 (0.9-1.3) APTT 29 (26-36) SECONDS Sodium 131 L (137-145) mmol/L Potassium 3.1 L (3.4-5.1) mmol/L Chloride 94 L (98-107) mmol/L Carbon Dioxide 24 (22-32) mmol/L BUN 16 (9-20) mg/dL Creatinine 0.91 (0.66-1.25) mg/dL Estimated GFR > 60 (>60) mL/min BUN/Creatinine Ratio 17.6 (6-22) Glucose 139 H (70-100) mg/dL Lactate (0.7-2.1) mmol/L Calcium 7.8 L (8.4-10.2) mg/dL Total Bilirubin 0.4 (0.2-1.3) mg/dL AST 38 (17-59) IU/L ALT 37 (<50) IU/L Alkaline Phosphatase 86 (38-126) U/L Total Creatine Kinase (55-170) U/L Troponin I (0.01-0.034) ng/mL Total Protein 7.1 (6.3-8.2) g/dL Albumin 3.7 (3.5-5.0) g/dL Globulin 3.4 (1.7-4.1) g/dL Albumin/Globulin Ratio 1.1 (1.0-2.8) Lipase 98 (23-300) U/L Procalcitonin 0.30 (<0.5) ng/mL Urine RBC (0-5/HPF) Urine WBC (0-5/HPF) Ur Squamous Epith Cells (0-5/HPF) Urine Bacteria (None) Ur Culture Indicated? U Opiates 300ng/mL cut (Negative) Ur Oxycodone Screen (Negative) Urine Methadone Screen (Negative) Ur Barbiturates Screen (Negative) U Tricyclic Antidepress (Negative) Ur Phencyclidine Scrn (Negative) Ur Amphetamines Screen (Negative) U Methamphetamines Scrn (Negative) Ur MDMA Scrn (Ecstasy) (Negative) U Benzodiazepines Scrn (Negative) Urine Cocaine Screen (Negative) U Marijuana (THC) Screen (Negative) Chlamy pneumoniae PCR (Not Detect) Adenovirus (PCR) (Not Detect) B. pertussis DNA (PCR) (Not Detecte) B.parapertussis DNA PCR (Not Detecte) Coronavirus OC43 (PCR) (Not Detect) Coronavirus HKU1 (PCR) (Not Detect) Coronavirus 229E (PCR) (Not Detect) SARS-CoV-2 (PCR) (Not Detecte) Coronavirus NL63 (PCR) (Not Detect) Human Metapneumovir PCR (Not Detect) Influenza Type A (PCR) (Not Detect) Influenza Type B (PCR) (Not Detect) M. pneumoniae (PCR) (Not Detect) Parainfluenza 1 (PCR) (Not Detect) Parainfluenza 2 (PCR) (Not Detect) Parainfluenza 3 (PCR) (Not Detect) Parainfluenza 4 (PCR) (Not Detect) RSV (PCR) (Not Detect) Entero/Rhino (PCR) (Not Detect) 01/20/23 01/20/23 01/20/23 Range/Units 00:10 00:10 00:19 WBC (4.5-11.0) X10^3/uL RBC (4.5-5.9) X10^6/uL Hgb (13.5-17.5) g/dL Hct (41-53) % MCV (80-100) fL MCH (26-34) PG MCHC (30-36) % RDW (11.6-14.8) % Plt Count (150-400) X10^3/uL Neut % (Auto) (50-75) % Lymph % (Auto) (25-40) % Swisher % (Auto) (3-14) % Eos % (Auto) (2-4) % Baso % (Auto) (0-2) % Neut # (Auto) (6790-6276) /uL Lymph # (Auto) (3135-6449) /uL Swisher # (Auto) (0-900) /uL Eos # (Auto) (0-450) /uL Baso # (Auto) (0-100) /uL ESR 10 (0-15) MM/HR PT (10.1-12.7) SECONDS INR (0.9-1.3) APTT (26-36) SECONDS Sodium (137-145) mmol/L Potassium (3.4-5.1) mmol/L Chloride (98-107) mmol/L Carbon Dioxide (22-32) mmol/L BUN (9-20) mg/dL Creatinine (0.66-1.25) mg/dL Estimated GFR (>60) mL/min BUN/Creatinine Ratio (6-22) Glucose (70-100) mg/dL Lactate 4.2 H* (0.7-2.1) mmol/L Calcium (8.4-10.2) mg/dL Total Bilirubin (0.2-1.3) mg/dL AST (17-59) IU/L ALT (<50) IU/L Alkaline Phosphatase (38-126) U/L Total Creatine Kinase (55-170) U/L Troponin I (0.01-0.034) ng/mL Total Protein (6.3-8.2) g/dL Albumin (3.5-5.0) g/dL Globulin (1.7-4.1) g/dL Albumin/Globulin Ratio (1.0-2.8) Lipase (23-300) U/L Procalcitonin (<0.5) ng/mL Urine RBC None seen (0-5/HPF) Urine WBC 0-1/hpf (0-5/HPF) Ur Squamous Epith Cells None seen (0-5/HPF) Urine Bacteria None seen (None) Ur Culture Indicated? Cult not indicated U Opiates 300ng/mL cut (Negative) Ur Oxycodone Screen (Negative) Urine Methadone Screen (Negative) Ur Barbiturates Screen (Negative) U Tricyclic Antidepress (Negative) Ur Phencyclidine Scrn (Negative) Ur Amphetamines Screen (Negative) U Methamphetamines Scrn (Negative) Ur MDMA Scrn (Ecstasy) (Negative) U Benzodiazepines Scrn (Negative) Urine Cocaine Screen (Negative) U Marijuana (THC) Screen (Negative) Chlamy pneumoniae PCR (Not Detect) Adenovirus (PCR) (Not Detect) B. pertussis DNA (PCR) (Not Detecte) B.parapertussis DNA PCR (Not Detecte) Coronavirus OC43 (PCR) (Not Detect) Coronavirus HKU1 (PCR) (Not Detect) Coronavirus 229E (PCR) (Not Detect) SARS-CoV-2 (PCR) (Not Detecte) Coronavirus NL63 (PCR) (Not Detect) Human Metapneumovir PCR (Not Detect) Influenza Type A (PCR) (Not Detect) Influenza Type B (PCR) (Not Detect) M. pneumoniae (PCR) (Not Detect) Parainfluenza 1 (PCR) (Not Detect) Parainfluenza 2 (PCR) (Not Detect) Parainfluenza 3 (PCR) (Not Detect) Parainfluenza 4 (PCR) (Not Detect) RSV (PCR) (Not Detect) Entero/Rhino (PCR) (Not Detect) 01/20/23 01/20/23 01/20/23 Range/Units 00:19 00:20 01:04 WBC (4.5-11.0) X10^3/uL RBC (4.5-5.9) X10^6/uL Hgb (13.5-17.5) g/dL Hct (41-53) % MCV (80-100) fL MCH (26-34) PG MCHC (30-36) % RDW (11.6-14.8) % Plt Count (150-400) X10^3/uL Neut % (Auto) (50-75) % Lymph % (Auto) (25-40) % Swisher % (Auto) (3-14) % Eos % (Auto) (2-4) % Baso % (Auto) (0-2) % Neut # (Auto) (3372-1013) /uL Lymph # (Auto) (3918-1035) /uL Swisher # (Auto) (0-900) /uL Eos # (Auto) (0-450) /uL Baso # (Auto) (0-100) /uL ESR (0-15) MM/HR PT (10.1-12.7) SECONDS INR (0.9-1.3) APTT (26-36) SECONDS Sodium (137-145) mmol/L Potassium (3.4-5.1) mmol/L Chloride (98-107) mmol/L Carbon Dioxide (22-32) mmol/L BUN (9-20) mg/dL Creatinine (0.66-1.25) mg/dL Estimated GFR (>60) mL/min BUN/Creatinine Ratio (6-22) Glucose (70-100) mg/dL Lactate (0.7-2.1) mmol/L Calcium (8.4-10.2) mg/dL Total Bilirubin (0.2-1.3) mg/dL AST (17-59) IU/L ALT (<50) IU/L Alkaline Phosphatase (38-126) U/L Total Creatine Kinase 79 (55-170) U/L Troponin I 0.012 (0.01-0.034) ng/mL Total Protein (6.3-8.2) g/dL Albumin (3.5-5.0) g/dL Globulin (1.7-4.1) g/dL Albumin/Globulin Ratio (1.0-2.8) Lipase (23-300) U/L Procalcitonin (<0.5) ng/mL Urine RBC (0-5/HPF) Urine WBC (0-5/HPF) Ur Squamous Epith Cells (0-5/HPF) Urine Bacteria (None) Ur Culture Indicated? U Opiates 300ng/mL cut Positive H (Negative) Ur Oxycodone Screen Negative (Negative) Urine Methadone Screen Negative (Negative) Ur Barbiturates Screen Negative (Negative) U Tricyclic Antidepress Negative (Negative) Ur Phencyclidine Scrn Negative (Negative) Ur Amphetamines Screen Negative (Negative) U Methamphetamines Scrn Negative (Negative) Ur MDMA Scrn (Ecstasy) Negative (Negative) U Benzodiazepines Scrn Negative (Negative) Urine Cocaine Screen Negative (Negative) U Marijuana (THC) Screen Positive H (Negative) Chlamy pneumoniae PCR Not detected (Not Detect) Adenovirus (PCR) Not detected (Not Detect) B. pertussis DNA (PCR) Not detected (Not Detecte) B.parapertussis DNA PCR Not detected (Not Detecte) Coronavirus OC43 (PCR) Not detected (Not Detect) Coronavirus HKU1 (PCR) Not detected (Not Detect) Coronavirus 229E (PCR) Not detected (Not Detect) SARS-CoV-2 (PCR) Not detected (Not Detecte) Coronavirus NL63 (PCR) Not detected (Not Detect) Human Metapneumovir PCR Not detected (Not Detect) Influenza Type A (PCR) Not detected (Not Detect) Influenza Type B (PCR) Not detected (Not Detect) M. pneumoniae (PCR) Not detected (Not Detect) Parainfluenza 1 (PCR) Not detected (Not Detect) Parainfluenza 2 (PCR) Not detected (Not Detect) Parainfluenza 3 (PCR) Not detected (Not Detect) Parainfluenza 4 (PCR) Not detected (Not Detect) RSV (PCR) Not detected (Not Detect) Entero/Rhino (PCR) Not detected (Not Detect) 01/20/23 Range/Units 02:18 WBC (4.5-11.0) X10^3/uL RBC (4.5-5.9) X10^6/uL Hgb (13.5-17.5) g/dL Hct (41-53) % MCV (80-100) fL MCH (26-34) PG MCHC (30-36) % RDW (11.6-14.8) % Plt Count (150-400) X10^3/uL Neut % (Auto) (50-75) % Lymph % (Auto) (25-40) % Swisher % (Auto) (3-14) % Eos % (Auto) (2-4) % Baso % (Auto) (0-2) % Neut # (Auto) (8189-9823) /uL Lymph # (Auto) (8874-4966) /uL Swisher # (Auto) (0-900) /uL Eos # (Auto) (0-450) /uL Baso # (Auto) (0-100) /uL ESR (0-15) MM/HR PT (10.1-12.7) SECONDS INR (0.9-1.3) APTT (26-36) SECONDS Sodium (137-145) mmol/L Potassium (3.4-5.1) mmol/L Chloride (98-107) mmol/L Carbon Dioxide (22-32) mmol/L BUN (9-20) mg/dL Creatinine (0.66-1.25) mg/dL Estimated GFR (>60) mL/min BUN/Creatinine Ratio (6-22) Glucose (70-100) mg/dL Lactate 2.3 H (0.7-2.1) mmol/L Calcium (8.4-10.2) mg/dL Total Bilirubin (0.2-1.3) mg/dL AST (17-59) IU/L ALT (<50) IU/L Alkaline Phosphatase (38-126) U/L Total Creatine Kinase (55-170) U/L Troponin I (0.01-0.034) ng/mL Total Protein (6.3-8.2) g/dL Albumin (3.5-5.0) g/dL Globulin (1.7-4.1) g/dL Albumin/Globulin Ratio (1.0-2.8) Lipase (23-300) U/L Procalcitonin (<0.5) ng/mL Urine RBC (0-5/HPF) Urine WBC (0-5/HPF) Ur Squamous Epith Cells (0-5/HPF) Urine Bacteria (None) Ur Culture Indicated? U Opiates 300ng/mL cut (Negative) Ur Oxycodone Screen (Negative) Urine Methadone Screen (Negative) Ur Barbiturates Screen (Negative) U Tricyclic Antidepress (Negative) Ur Phencyclidine Scrn (Negative) Ur Amphetamines Screen (Negative) U Methamphetamines Scrn (Negative) Ur MDMA Scrn (Ecstasy) (Negative) U Benzodiazepines Scrn (Negative) Urine Cocaine Screen (Negative) U Marijuana (THC) Screen (Negative) Chlamy pneumoniae PCR (Not Detect) Adenovirus (PCR) (Not Detect) B. pertussis DNA (PCR) (Not Detecte) B.parapertussis DNA PCR (Not Detecte) Coronavirus OC43 (PCR) (Not Detect) Coronavirus HKU1 (PCR) (Not Detect) Coronavirus 229E (PCR) (Not Detect) SARS-CoV-2 (PCR) (Not Detecte) Coronavirus NL63 (PCR) (Not Detect) Human Metapneumovir PCR (Not Detect) Influenza Type A (PCR) (Not Detect) Influenza Type B (PCR) (Not Detect) M. pneumoniae (PCR) (Not Detect) Parainfluenza 1 (PCR) (Not Detect) Parainfluenza 2 (PCR) (Not Detect) Parainfluenza 3 (PCR) (Not Detect) Parainfluenza 4 (PCR) (Not Detect) RSV (PCR) (Not Detect) Entero/Rhino (PCR) (Not Detect) Urine Dip Bedside Urine Glucose Negative Bedside Urine Bilirubin - Negative Bedside Urine Ketone +/- 5 Urine Specific [place] 1.015 Bedside Urine Occult Blood - Negative Bedside Urine pH 6.0 Bedside Urine Protein +/- 15 Bedside Urine Urobilinogen - Negative Bedside Urine Nitrite - Negative Bedside Urine Leukocytes - Negative Esterase Imaging Data Chest x-ray: Radiologist's Impression: PROCEDURE:? XR CHEST 1V ? INDICATIONS:? suspected sepsis ? TECHNIQUE:? One view of the chest was acquired.? ? COMPARISON:? [facility], CR, XR CHEST 2V, 11/16/2021, 11:20. ? FINDINGS:? ? Surgical changes and devices:? None.? ? Lungs and pleura:? Lungs are clear.? No pleural effusions or pneumothorax.? ? Mediastinum:? Mediastinal contours appear normal.? Heart size is normal.? ? Bones and chest wall:? No suspicious bony lesions.? Overlying soft tissues appear unremarkable.? ? IMPRESSION:? ? 1.? No acute cardiopulmonary disease. ? ? ? Dictated by: Fredy Delong M.D. on 01/20/2023 at 0:59 ? CT scan - abdomen/pelvis: Radiologist's Impression: PROCEDURE:? CT ABDOMEN PELVIS W CON ? INDICATIONS:? sepsis back pain ab pain ? TECHNIQUE:? After the administration of IV contrast, axial sections were acquired from the lung bases to the pubic symphysis.? Coronal and sagittal reformats were performed.? For radiation dose reduction, the following was used:? automated exposure control, adjustment of mA and/or kV according to patient size. ? COMPARISON:? None. ? FINDINGS:? Image quality:? Excellent.? ? Lung bases:? Unremarkable.? ? Heart:? Heart is normal in size. ? ? ABDOMEN: Liver:? There is hypoattenuation of the liver consistent with fatty infiltration. Gallbladder:? Within normal limits without calcified gallstones.? ? Biliary ducts:? No biliary ductal dilatation.? ? Pancreas:? Unremarkable.? ? Spleen:? Normal in size.? ? Adrenal Glands:? No adrenal nodules.? ? Kidneys and Ureters:? No hydronephrosis.? There is mild nonspecific perinephric stranding. ? ? Stomach and Bowel:? Stomach, small bowel loops, and colon are normal in caliber and wall thickness.? No pericecal inflammatory changes to suggest appendicitis.? There is colonic diverticulosis without acute diverticulitis.? Peritoneum:? No abnormal intraperitoneal fluid.? No free air.? ? Ventral Wall: ? No hernia.? Abdominal Nodes:? No retroperitoneal or mesenteric adenopathy by size criteria.? Vessels:? Aorta and inferior vena cava are normal in size.? ? PELVIS: Pelvic Organs:? Unremarkable.? ? Bladder:? Unremarkable.? ? Pelvic Nodes: No enlarged lymph nodes.? Miscellaneous: No inguinal hernias are seen. ? ? ? Bones:? Visualized osseous structures demonstrate no suspicious focal lesions. ? IMPRESSION:? ? 1. Mild nonspecific perinephric stranding without hydronephrosis.? Recommend correlation clinically for possible pyelonephritis. ? 2. Elsewhere, no definite acute intra-abdominal abnormality.? ? 3. Colonic diverticulosis without acute diverticulitis. ? 4. Hepatic steatosis.? ? Dictated by: Fredy Delong M.D. on 01/20/2023 at 2:00 [facility] Narrative Medical decision making narrative: Patient 47-year-old male meet sepsis criteria with tachycardia and fever. He is not hypotensive. He is found have leukocytosis of 20 with an elevated lactate of 4.2. He does not have a good source of infection possible cellulitis. Really only complaining of pain in that left thigh with very small amount of erythema but is tender to touch. No concern for Leroy's gangrene. Respiratory panel is negative urinalysis is negative. He had some minimal abdominal pain on exam CT does show questionable up perinephric stranding Discharge Plan Departure Patient Disposition: Admitted As Inpatient Clinical Impression: Sepsis Admit Date/Time: 01/20/23 03:20 Admit Provider: Fausto Wallace
[2023-01-20 02:00] LABS: Adenovirus Not Detected (Not Detect)
[2023-01-20 02:01] LABS: B. parapertussis Not Detected (Not Detecte); Bordetella pertussis Not Detected (Not Detecte); Chlamydophila pneumoniae Not Detected (Not Detect); Coronavirus 229E Not Detected (Not Detect); Coronavirus HKU1 Not Detected (Not Detect); Coronavirus NL 63 Not Detected (Not Detect); Coronavirus OC43 Not Detected (Not Detect); Human Metapneumovirus Not Detected (Not Detect); Human Rhinovirus/Enterovirus Not Detected (Not Detect); Influenza A Not Detected (Not Detect); Influenza B Not Detected (Not Detect); Mycoplasma pneumoniae Not Detected (Not Detect); Parainfluenza Virus 1 Not Detected (Not Detect); Parainfluenza Virus 2 Not Detected (Not Detect); Parainfluenza Virus 3 Not Detected (Not Detect); Parainfluenza Virus 4 Not Detected (Not Detect); Respiratory Syncytial Virus Not Detected (Not Detect); SARS- CoV-2 Not Detected (Not Detecte)
[2023-01-20 02:18] LABS: Reflexed Lactate in 2 Hours Y
[2023-01-20] MEDS: MORPHINE 4 MG/ML INJ IV (02:26)
[2023-01-20 02:38] LABS: Lactate 2HR (Lactic Acid Rflx) 2.3 mmol/L (0.7-2.1)
[2023-01-20 04:12] LABS: Erythrocyte Sedimentation Rate 10 MM/HR (0-15)
[2023-01-20] MEDS: SODIUM CHLORIDE 0.9% 1,000 ML 100 ML IV ×2 (04:31→21:20)
[2023-01-20] MEDS: PIPERACILLIN/TAZO 3.375 GM in SODIUM CHLORIDE 0.9% 100 ML IV ×3 (04:35→21:50)
[2023-01-20] MEDS: ACETAMINOPHEN 325 MG TABLET 650 MG PO ×3 (04:36→15:23)
[2023-01-20] MEDS: HYDROMORPHONE 0.5 MG INJ IV ×2 (04:36→20:42)
--- NOTE | 2023-01-20 05:03 | DI.CT.S_ITS ---
PROCEDURE: CT HEAD/BRAIN W CON INDICATIONS: severe MARCIAL with sepsis TECHNIQUE: 4.5 mm thick angled axial sections acquired from the foramen magnum to the vertex after the administration of intravenous contrast, with coronal and sagittal reformats. For radiation dose reduction, the following was used: automated exposure control, adjustment of mA and/or kV according to patient size. COMPARISON: None. FINDINGS: Image quality: Excellent. CSF Spaces: Basal cisterns are patent. No extra-axial fluid collections. Ventricles are normal in size and shape. Brain: No midline shift. No intracranial bleeds or masses. No abnormal intracranial enhancement. Bull-white interface appears normal. Skull and face: Calvarium and visualized facial bones appear intact, without suspicious lesions. Sinuses: Visualized sinuses and mastoids are clear. IMPRESSION: 1. No acute intracranial abnormalities. No significant discrepancy with the mamma logist radiology preliminary report. Dictated by: Fifi Barone M.D. on 01/20/2023 at 7:48 Approved by: Fifi Barone M.D. on 01/20/2023 at 7:50
--- NOTE | 2023-01-20 05:05 | DI.US.S_ITS ---
PROCEDURE: US PERIPH VENOUS LOW EXTREM LT INDICATIONS: PAIN IN LEFT THIGH TECHNIQUE: Real-time imaging, as well as color and pulse Doppler interrogation, were performed of the lower extremity deep veins from the inguinal ligament to the popliteal fossa, with documentation of the visualized calf veins. COMPARISON: None. FINDINGS: The common femoral, femoral, popliteal, and the visualized calf veins are normally compressible, and free of intraluminal thrombus. Color and pulse Doppler demonstrate normal phasic intraluminal flow. There is normal augmentation response to distal compression maneuver. Prominent left groin lymph node with a short axis diameter measuring 1.2 cm. No cortical thickening. Preserved fatty hilum. IMPRESSION: No findings of lower extremity deep venous thrombosis. Prominent left groin lymph node. Dictated by: Hesham Monsivais M.D. on 01/20/2023 at 7:44 Approved by: Hesham Monsivais M.D. on 01/20/2023 at 7:45
--- NOTE | 2023-01-20 05:06 | P.HP_ITS ---
History of Present Illness History of Present Illness Date Patient Seen: 01/20/23 Time Patient Seen: 05:09 Date of Onset of Symptoms: 01/19/23 Chief complaint: N, dizzy, fever Narrative: The pt was brought to the ER due to overwhelming fatigue and headaches which started earlier in the day. He reports sleeping most of the day on the 10th w hich is unsual for him. In the Er he was tachycardic, with a WBC of 20 and a LA of 4.2. He was camping 3 days ago and is uncertain if he had any exposure to ticks, insects or poisonous plants. He denies any neck stiffness, fevers, chills, cough, sputum production, CP, N/V/Diarrhea or rashes. Chago did have a crush injury to his RLE 10 years ago and now has a bruising area over the left thigh that he does not know where it came from. REPLACED BY [facility] Medical History (Updated 01/20/23 @ 03:20 by Zina Crisostomo DO) Chronic pain after traumatic injury Morbid obesity with body mass index (BMI) of 40.0 to 49.9 Nocturnal hypoxemia Obstructive sleep apnea Pre-diabetes Snoring Surgical History (Updated 03/01/21 @ 07:51 by Saritha Linn RN) History of surgery S/P excision of lipoma (08/13/19) Social History household members: family Smoking Status: Current every day smoker alcohol intake: current Meds Home Medications and Allergies Home Medications Medication Instructions Recorded Confirmed Type hydrocodone 5 mg-acetaminophen 325 1 tab PO Q4HR PRN Pain (Scale 02/21/19 01/20/23 History mg tablet Score 1-3) fluoxetine 20 mg capsule 20 mg PO DAILY 05/17/22 01/20/23 History fluoxetine 40 mg capsule 40 mg PO DAILY 05/17/22 01/20/23 History trazodone 50 mg tablet 50 mg PO DAILY 05/17/22 01/20/23 History Allergies Allergy/AdvReac Type Severity Reaction Status Date / Time No Known Drug Allergies Allergy Verified 05/17/22 10:56 Review of Systems Review of Systems Narrative: all systems were reviewed and are negative except what is listed in the HPI Exam Vital Signs (past 8 hours): - 01/20/23 00:07 01/20/23 00:18 01/20/23 00:30 Temperature 103.3 F H Pulse Rate 113 H 109 H Respiratory Rate 26 H 18 Blood Pressure 154/74 H 103/55 L Pulse Oximetry 98 94 Oxygen Delivery Method Room Air Oxygen Flow Rate 01/20/23 00:30 01/20/23 00:52 01/20/23 00:53 Temperature 103.3 F H 103.3 F H Pulse Rate 110 H Respiratory Rate 16 Blood Pressure Pulse Oximetry 94 Oxygen Delivery Method Oxygen Flow Rate 01/20/23 01:00 01/20/23 01:00 01/20/23 01:30 Temperature Pulse Rate 104 H Respiratory Rate 15 Blood Pressure 104/58 L 108/57 L Pulse Oximetry 94 Oxygen Delivery Method Oxygen Flow Rate 01/20/23 01:30 01/20/23 02:00 01/20/23 02:00 Temperature 100.4 F H Pulse Rate 100 H 99 H Respiratory Rate 15 28 H Blood Pressure 116/58 L Pulse Oximetry 94 93 Oxygen Delivery Method Room Air Oxygen Flow Rate 01/20/23 02:26 01/20/23 02:30 01/20/23 02:30 Temperature 100.4 F H Pulse Rate 94 H Respiratory Rate 21 Blood Pressure 117/58 L Pulse Oximetry 93 Oxygen Delivery Method Oxygen Flow Rate 01/20/23 03:00 01/20/23 03:00 01/20/23 03:30 Temperature Pulse Rate 94 H Respiratory Rate 26 H Blood Pressure 123/58 L 110/57 L Pulse Oximetry 92 Oxygen Delivery Method Room Air Oxygen Flow Rate 01/20/23 03:30 01/20/23 04:05 Temperature 98.1 F Pulse Rate 92 H 92 H Respiratory Rate 22 20 Blood Pressure 152/82 H Pulse Oximetry 93 96 Oxygen Delivery Method Room Air Oxygen Flow Rate 0 Oxygen Delivery Method Room Air Oxygen Flow Rate 0 Const General: cooperative, healthy appearing, comfortable and well developed [facility] Head: normal to inspection, normocephalic and atraumatic Neck Neck: normal visual inspection, full ROM and no meningeal signs Resp Auscultation: clear to auscultation bilaterally Cardio Rate: regular rate Rhythm: regular rhythm Pulses: radial pulses present GI Inspection: normal to inspection Auscultation: normal bowel sounds Back/Spine/Pelvis Back: normal to inspection Skin General: no rashes or lesions noted Neuro General: patient alert, patient awake and patient oriented x3 Objective Imaging CT scan - abdomen: My impression: possibly mild stranding around the kidneys Labs 01/20/23 00:10 01/20/23 00:10 Labs: Laboratory Results - last 24 hr 01/20/23 01/20/23 01/20/23 00:10 00:10 00:10 WBC 20.8 H RBC 4.02 L Hgb 14.2 Hct 40.6 L MCV 100.9 H MCH 35.3 H MCHC 35.0 RDW 12.6 Plt Count 262 Neut % (Auto) 90.8 H Lymph % (Auto) 5.0 L [place] % (Auto) 3.9 Eos % (Auto) 0.0 L Baso % (Auto) 0.3 Neut # (Auto) 59610 H Lymph # (Auto) 1000 L [place] # (Auto) 800 Eos # (Auto) 0 Baso # (Auto) 100 ESR PT 13.5 H INR 1.2 APTT 29 Sodium 131 L Potassium 3.1 L Chloride 94 L Carbon Dioxide 24 BUN 16 Creatinine 0.91 Estimated GFR > 60 BUN/Creatinine Ratio 17.6 Glucose 139 H Lactate Calcium 7.8 L Total Bilirubin 0.4 AST 38 ALT 37 Alkaline Phosphatase 86 Total Creatine Kinase Troponin I Total Protein 7.1 Albumin 3.7 Globulin 3.4 Albumin/Globulin Ratio 1.1 Lipase 98 Procalcitonin 0.30 Urine RBC Urine WBC Ur Squamous Epith Cells Urine Bacteria Ur Culture Indicated? U Opiates 300ng/mL cut Ur Oxycodone Screen Urine Methadone Screen Ur Barbiturates Screen U Tricyclic Antidepress Ur Phencyclidine Scrn Ur Amphetamines Screen U Methamphetamines Scrn Ur MDMA Scrn (Ecstasy) U Benzodiazepines Scrn Urine Cocaine Screen U Marijuana (THC) Screen Chlamy pneumoniae PCR Adenovirus (PCR) B. pertussis DNA (PCR) B.parapertussis DNA PCR Coronavirus OC43 (PCR) Coronavirus HKU1 (PCR) Coronavirus 229E (PCR) SARS-CoV-2 (PCR) Coronavirus NL63 (PCR) Human Metapneumovir PCR Influenza Type A (PCR) Influenza Type B (PCR) M. pneumoniae (PCR) Parainfluenza 1 (PCR) Parainfluenza 2 (PCR) Parainfluenza 3 (PCR) Parainfluenza 4 (PCR) RSV (PCR) Entero/Rhino (PCR) 01/20/23 01/20/23 01/20/23 00:10 00:10 00:19 WBC RBC Hgb Hct MCV MCH MCHC RDW Plt Count Neut % (Auto) Lymph % (Auto) [place] % (Auto) Eos % (Auto) Baso % (Auto) Neut # (Auto) Lymph # (Auto) [place] # (Auto) Eos # (Auto) Baso # (Auto) ESR 10 PT INR APTT Sodium Potassium Chloride Carbon Dioxide BUN Creatinine Estimated GFR BUN/Creatinine Ratio Glucose Lactate 4.2 H* Calcium Total Bilirubin AST ALT Alkaline Phosphatase Total Creatine Kinase Troponin I Total Protein Albumin Globulin Albumin/Globulin Ratio Lipase Procalcitonin Urine RBC None seen Urine WBC 0-1/hpf Ur Squamous Epith Cells None seen Urine Bacteria None seen Ur Culture Indicated? Cult not indicated U Opiates 300ng/mL cut Ur Oxycodone Screen Urine Methadone Screen Ur Barbiturates Screen U Tricyclic Antidepress Ur Phencyclidine Scrn Ur Amphetamines Screen U Methamphetamines Scrn Ur MDMA Scrn (Ecstasy) U Benzodiazepines Scrn Urine Cocaine Screen U Marijuana (THC) Screen Chlamy pneumoniae PCR Adenovirus (PCR) B. pertussis DNA (PCR) B.parapertussis DNA PCR Coronavirus OC43 (PCR) Coronavirus HKU1 (PCR) Coronavirus 229E (PCR) SARS-CoV-2 (PCR) Coronavirus NL63 (PCR) Human Metapneumovir PCR Influenza Type A (PCR) Influenza Type B (PCR) M. pneumoniae (PCR) Parainfluenza 1 (PCR) Parainfluenza 2 (PCR) Parainfluenza 3 (PCR) Parainfluenza 4 (PCR) RSV (PCR) Entero/Rhino (PCR) 01/20/23 01/20/23 01/20/23 00:19 00:20 01:04 WBC RBC Hgb Hct MCV MCH MCHC RDW Plt Count Neut % (Auto) Lymph % (Auto) [place] % (Auto) Eos % (Auto) Baso % (Auto) Neut # (Auto) Lymph # (Auto) [place] # (Auto) Eos # (Auto) Baso # (Auto) ESR PT INR APTT Sodium Potassium Chloride Carbon Dioxide BUN Creatinine Estimated GFR BUN/Creatinine Ratio Glucose Lactate Calcium Total Bilirubin AST ALT Alkaline Phosphatase Total Creatine Kinase 79 Troponin I 0.012 Total Protein Albumin Globulin Albumin/Globulin Ratio Lipase Procalcitonin Urine RBC Urine WBC Ur Squamous Epith Cells Urine Bacteria Ur Culture Indicated? U Opiates 300ng/mL cut Positive H Ur Oxycodone Screen Negative Urine Methadone Screen Negative Ur Barbiturates Screen Negative U Tricyclic Antidepress Negative Ur Phencyclidine Scrn Negative Ur Amphetamines Screen Negative U Methamphetamines Scrn Negative Ur MDMA Scrn (Ecstasy) Negative U Benzodiazepines Scrn Negative Urine Cocaine Screen Negative U Marijuana (THC) Screen Positive H Chlamy pneumoniae PCR Not detected Adenovirus (PCR) Not detected B. pertussis DNA (PCR) Not detected B.parapertussis DNA PCR Not detected Coronavirus OC43 (PCR) Not detected Coronavirus HKU1 (PCR) Not detected Coronavirus 229E (PCR) Not detected SARS-CoV-2 (PCR) Not detected Coronavirus NL63 (PCR) Not detected Human Metapneumovir PCR Not detected Influenza Type A (PCR) Not detected Influenza Type B (PCR) Not detected M. pneumoniae (PCR) Not detected Parainfluenza 1 (PCR) Not detected Parainfluenza 2 (PCR) Not detected Parainfluenza 3 (PCR) Not detected Parainfluenza 4 (PCR) Not detected RSV (PCR) Not detected Entero/Rhino (PCR) Not detected 01/20/23 02:18 WBC RBC Hgb Hct MCV MCH MCHC RDW Plt Count Neut % (Auto) Lymph % (Auto) [place] % (Auto) Eos % (Auto) Baso % (Auto) Neut # (Auto) Lymph # (Auto) [place] # (Auto) Eos # (Auto) Baso # (Auto) ESR PT INR APTT Sodium Potassium Chloride Carbon Dioxide BUN Creatinine Estimated GFR BUN/Creatinine Ratio Glucose Lactate 2.3 H Calcium Total Bilirubin AST ALT Alkaline Phosphatase Total Creatine Kinase Troponin I Total Protein Albumin Globulin Albumin/Globulin Ratio Lipase Procalcitonin Urine RBC Urine WBC Ur Squamous Epith Cells Urine Bacteria Ur Culture Indicated? U Opiates 300ng/mL cut Ur Oxycodone Screen Urine Methadone Screen Ur Barbiturates Screen U Tricyclic Antidepress Ur Phencyclidine Scrn Ur Amphetamines Screen U Methamphetamines Scrn Ur MDMA Scrn (Ecstasy) U Benzodiazepines Scrn Urine Cocaine Screen U Marijuana (THC) Screen Chlamy pneumoniae PCR Adenovirus (PCR) B. pertussis DNA (PCR) B.parapertussis DNA PCR Coronavirus OC43 (PCR) Coronavirus HKU1 (PCR) Coronavirus 229E (PCR) SARS-CoV-2 (PCR) Coronavirus NL63 (PCR) Human Metapneumovir PCR Influenza Type A (PCR) Influenza Type B (PCR) M. pneumoniae (PCR) Parainfluenza 1 (PCR) Parainfluenza 2 (PCR) Parainfluenza 3 (PCR) Parainfluenza 4 (PCR) RSV (PCR) Entero/Rhino (PCR) Assessment & Plan Assessment and plan (1) Sepsis: Status: Acute (2) Chronic pain after traumatic injury: Problem details: Shattered right leg surgically repaired Status: Chronic (3) Obstructive sleep apnea: Status: Chronic Plan Will admit the pt on IVfluids of NS at 100cc/hr. LA is elevated without a souce. Will repeat labs in am, CT scan reviewed with possible stranding around the kidneys but clinically has no symptoms. He denies any dysuria, hematuria, urgency or back pain but will empirically place on zosyn and vanco for complete coverage. SInce he is c/o left thigh pain will order a US to Left thigh to DVT, CT head ordered due to MARCIAL,
[2023-01-20] MEDS: VANCOMYCIN 3,000 MG/600 ML PIGGYBACK 150 MG IV (06:01)
[2023-01-20 07:10] LABS: Add Manual Diff / Slide Review NO; Basophils Absolute Auto 0 /uL (0-100); Basophils Percent Auto 0.3 % (0-2); Eosinophils Absolute Auto 0 /uL (0-450); Hematocrit 34.6 % (41-53); Lymphocytes Absolute Auto 800 /uL (1100-4500); Lymphocytes Percent Auto 6.2 % (25-40); Mean Corpuscular HGB Conc 34.6 % (30-36); Mean Corpuscular Hemoglobin 35.2 PG (26-34); Mean Corpuscular Volume 101.7 fL (80-100); Monocytes Absolute Auto 400 /uL (0-900); Monocytes Percent Auto 3.4 % (3-14); Neutrophils Absolute Auto 11000 /uL (1500-7000); Neutrophils Percent Auto 90.1 % (50-75); Platelet Count 215 X10^3/uL (150-400); Red Cell Distribution Width 12.7 % (11.6-14.8); White Blood Cell Count 12.3 X10^3/uL (4.5-11.0)
[2023-01-20 07:22] LABS: Alanine Aminotransferase 33 IU/L (<50); Albumin 2.8 g/dL (3.5-5.0); Albumin Globulin Ratio 1.1 (1.0-2.8); Alkaline Phosphatase 66 U/L (38-126); Aspartate Aminotransferase 41 IU/L (17-59); BUN Creatinine Ratio 15.9 (6-22); Bilirubin Total 0.4 mg/dL (0.2-1.3); Blood Urea Nitrogen 13 mg/dL (9-20); Carbon Dioxide 22 mmol/L (22-32); Chloride 105 mmol/L (98-107); Estimated Glomerular Filt Rate > 60 mL/min (>60); Globulin 2.6 g/dL (1.7-4.1); Glucose 119 mg/dL (70-100); HEMOLYSIS < 15 (0-50); Potassium 2.9 mmol/L (3.4-5.1); Sodium 135 mmol/L (137-145); Total Protein 5.4 g/dL (6.3-8.2)
[2023-01-20 07:38] LABS: Calcium 6.3 mg/dL (8.4-10.2); Procalcitonin 0.27 ng/mL (<0.5)
[2023-01-20] MEDS: ENOXAPARIN 40 MG/0.4 ML SYRINGE SUBCUT (08:56)
[2023-01-20] MEDS: HYDROCODONE/ACET 5/325 TABLET 1 TAB PO ×2 (08:57→12:51)
--- NOTE | 2023-01-20 09:18 | CM.DANOTE ---
DCP: Chart review for case, met with patient at bedside, they agree to case management assessment. Completed DCP assessment based on information available. Patient is a 47 year old admitted for fever, presumed infection, currently on IV ABX. States brother Roberto Velasquez lives locally and will be feeder driver home when medically cleared. PCP: Ronni Dominguez last seen about 2 months ago according to patient Payer: [employer] Options DME: None DCP: Home with supportive family. Radha Amaro RN, CM Discharge Planning/Care Management CM Discharge Assessment Start: 01/20/23 09:17 Freq: Status: Active Protocol: Document 01/20/23 09:17 BQ (Rec: 01/20/23 09:18 BQ [id number]) Discharge Planning Assessment Assigned Retail Associate Radha Amaro RN, CM Advance Directives? No History Provided By Patient Has Patient been admitted in last 30 No days? Prior Living Arrangements House Household Members none Type of transporation used prior to Drives own vehicle admit Independent with ADL's Yes Is patient alert and oriented? Yes Barriers to Discharge No Discharge Plan Home Referrals Initiated None needed Whiteboard Updated in Patient Room with Yes name and ext. # of Retail Associate Review Status In Process Next Review Type Continued Stay Review
[2023-01-20] MEDS: POTASSIUM CHLORIDE 20 MEQ TAB 40 MEQ PO ×2 (10:13→16:08)
[2023-01-20] MEDS: BUTALB/APAP/CAFFEINE 50/325/40 TABLET 1 EACH PO (13:27)
[2023-01-20] MEDS: VANCOMYCIN 2,000 MG/400 ML PIGGYBACK 200 MG IV (17:08)
[2023-01-20 21:36] LABS: HEMOLYSIS < 15 (0-50); Potassium 3.3 mmol/L (3.4-5.1)
[2023-01-21] VITALS (17 sets, daily range): BP systolic 149–211; BP diastolic 90–122; PULSE 89–108; RESP 16–23; TEMP 36.6–37.7; O2SAT 94–96
[2023-01-21] MEDS: HYDROMORPHONE 0.5 MG INJ IV ×5 (00:31→20:57)
[2023-01-21] MEDS: ACETAMINOPHEN 325 MG TABLET 650 MG PO ×3 (05:25→21:00)
[2023-01-21] MEDS: SODIUM CHLORIDE 0.9% FLUSH 10 ML IV ×2 (05:27→19:52)
[2023-01-21] MEDS: PIPERACILLIN/TAZO 3.375 GM in SODIUM CHLORIDE 0.9% 100 ML IV ×3 (05:35→20:58)
[2023-01-21] MEDS: SODIUM CHLORIDE 0.9% 250 ML 21 ML IV (05:36)
[2023-01-21] MEDS: VANCOMYCIN 2,000 MG/400 ML PIGGYBACK 200 MG IV ×2 (05:59→18:43)
[2023-01-21 06:15] LABS: Add Manual Diff / Slide Review NO; Basophils Absolute Auto 0 /uL (0-100); Basophils Percent Auto 0.2 % (0-2); Eosinophils Absolute Auto 0 /uL (0-450); Eosinophils Percent Auto 0.1 % (2-4); Hematocrit 34.7 % (41-53); Hemoglobin 12.1 g/dL (13.5-17.5); Lymphocytes Absolute Auto 900 /uL (1100-4500); Lymphocytes Percent Auto 8.3 % (25-40); Mean Corpuscular HGB Conc 34.8 % (30-36); Mean Corpuscular Hemoglobin 35.2 PG (26-34); Monocytes Absolute Auto 600 /uL (0-900); Monocytes Percent Auto 4.9 % (3-14); Neutrophils Absolute Auto 9800 /uL (1500-7000); Neutrophils Percent Auto 86.5 % (50-75); Platelet Count 204 X10^3/uL (150-400); Red Blood Cell Count 3.43 X10^6/uL (4.5-5.9); Red Cell Distribution Width 12.5 % (11.6-14.8); White Blood Cell Count 11.3 X10^3/uL (4.5-11.0)
[2023-01-21 06:22] LABS: Alanine Aminotransferase 36 IU/L (<50); Albumin Globulin Ratio 0.9 (1.0-2.8); Alkaline Phosphatase 84 U/L (38-126); Aspartate Aminotransferase 39 IU/L (17-59); BUN Creatinine Ratio 7.6 (6-22); Bilirubin Total 0.3 mg/dL (0.2-1.3); Blood Urea Nitrogen 5 mg/dL (9-20); Calcium 6.7 mg/dL (8.4-10.2); Carbon Dioxide 24 mmol/L (22-32); Chloride 99 mmol/L (98-107); Estimated Glomerular Filt Rate > 60 mL/min (>60); Globulin 3.2 g/dL (1.7-4.1); Glucose 117 mg/dL (70-100); HEMOLYSIS < 15 (0-50); Sodium 129 mmol/L (137-145); Total Protein 6.2 g/dL (6.3-8.2)
[2023-01-21] MEDS: ENOXAPARIN 40 MG/0.4 ML SYRINGE SUBCUT (08:05)
[2023-01-21] MEDS: POTASSIUM CHLORIDE 20 MEQ TAB 40 MEQ PO ×2 (08:21→14:32)
[2023-01-21] MEDS: SODIUM CHLORIDE 0.9% 1,000 ML 100 ML IV ×2 (09:13→21:00)
--- NOTE | 2023-01-21 10:02 | PM.PN.1 ---
Subjective Subjective Date Patient Seen: 01/21/23 Time Patient Seen: 09:10 Interval history: CC: LLE pain Infection numbers improving today after 24 hours on vanc/zosyn Appears to be widespread cellulitis in LLE as source, possibly in two locations, with lymphadenopathy and edema Very painful in inner thigh and ankle/foot resuming BP and mood meds Exam Vital Signs (past 8 hours): - 01/21/23 05:25 01/21/23 05:42 01/21/23 07:53 Temperature 99.9 F H 97.8 F Pulse Rate 107 H 105 H Respiratory Rate 23 Blood Pressure 211/122 H 178/97 H Pulse Oximetry 94 Oxygen Flow Rate 01/21/23 08:00 Temperature Pulse Rate Respiratory Rate Blood Pressure Pulse Oximetry Oxygen Flow Rate 0 Oxygen Delivery Method Room Air Oxygen Flow Rate 0 Narrative Exam Narrative: alert obese male asleep in bed Resp Other: clear to auscultation bilaterally Cardio Other: regular rate and rhythm, S1/S2 GI Other: soft nontender active bowel sounds Neuro General: patient alert, patient awake, patient oriented x3, tone normal and moves all extremities Extrem Other: beefy red shiny cellulitis on distal L leg/ankle/foot with ok dorsal pulse. Faint pink rash on L inner thigh stopping at groin which patient says hurts worse, deep down. all tender to palpation Objective Labs 01/21/23 05:36 01/21/23 05:36 Labs: Laboratory Results - last 24 hr 01/20/23 01/21/23 01/21/23 21:17 05:36 05:36 WBC 11.3 H RBC 3.43 L Hgb 12.1 L Hct 34.7 L MCV 101.0 H MCH 35.2 H MCHC 34.8 RDW 12.5 Plt Count 204 Neut % (Auto) 86.5 H Lymph % (Auto) 8.3 L [place] % (Auto) 4.9 Eos % (Auto) 0.1 L Baso % (Auto) 0.2 Neut # (Auto) 9800 H Lymph # (Auto) 900 L [place] # (Auto) 600 Eos # (Auto) 0 Baso # (Auto) 0 Sodium 129 L Potassium 3.3 L 3.0 L Chloride 99 Carbon Dioxide 24 BUN 5 L Creatinine 0.66 Estimated GFR > 60 BUN/Creatinine Ratio 7.6 Glucose 117 H Calcium 6.7 L Total Bilirubin 0.3 AST 39 ALT 36 Alkaline Phosphatase 84 Total Protein 6.2 L Albumin 3.0 L Globulin 3.2 Albumin/Globulin Ratio 0.9 L [facility] Medical History (Updated 01/20/23 @ 03:20 by Zina Crisostomo DO) Chronic pain after traumatic injury Morbid obesity with body mass index (BMI) of 40.0 to 49.9 Nocturnal hypoxemia Obstructive sleep apnea Pre-diabetes Snoring Surgical History (Updated 03/01/21 @ 07:51 by Saritha Linn RN) History of surgery S/P excision of lipoma (08/13/19) Social History household members: none Smoking Status: Current every day smoker alcohol intake: current Assessment & Plan Assessment & Plan narrative: #sepsis #LLE cellulitis with lymphadenopathy WBCs improving still quite neutrophilic, continue vanc/zosyn and fluids, encourage mobilization as tolerated Trending out lactic acid, last reading still above 2 #hypokalemia #hypocalcemia repleting and trending #hypertension resume home losartan, prn hydralazine ordered #hx of diabetes Pt reports not on meds, sometime his A1c is over 10, lately has been under 6 he thinks. Will check A1c could be contributing to infectability if uncontrolled. dispo: really quite acutely ill patient on presentation with the specific underlying cause of this acute illness not clear. Requiring continued inpatient management with broad spectrum antibiotics for probably 2 more days code: full PCP: Noemy Fajardo DVT: lovenox
[2023-01-21] MEDS: FLUoxetine 20 MG CAPSULE 60 MG PO (11:07)
[2023-01-21] MEDS: HYDROCODONE/ACET 5/325 TABLET 1 TAB PO (11:08)
[2023-01-21] MEDS: LOSARTAN 50 MG TABLET 100 MG PO (11:08)
[2023-01-21] MEDS: VANCOMYCIN TROUGH 1 REQUEST MISC (18:23)
[2023-01-21] MEDS: SODIUM CHLORIDE 1,000 MG TABLET 1000 MG PO (19:51)
[2023-01-21] MEDS: CALCIUM CARBONATE 500 MG TAB 1000 MG PO (21:18)
[2023-01-21] MEDS: HYDRALAZINE 20 MG/ML VIAL 10 MG IV (21:18)
[2023-01-21] MEDS: VANCOMYCIN PEAK 1 REQUEST MISC (21:45)
[2023-01-21 22:06] LABS: Lactate (Lactic Acid) 0.9 mmol/L (0.7-2.1)
[2023-01-21 22:25] LABS: Vancomycin Peak 26.4 ug/mL (20-40)
[2023-01-22] VITALS (10 sets, daily range): BP systolic 134–189; BP diastolic 84–114; PULSE 83–117; RESP 18–23; TEMP 35.7–38.4; O2SAT 94–100
[2023-01-22] MEDS: HYDROMORPHONE 0.5 MG INJ IV ×3 (00:49→12:40)
[2023-01-22] MEDS: ACETAMINOPHEN 325 MG TABLET 650 MG PO (04:19)
[2023-01-22] MEDS: HYDROCODONE/ACET 5/325 TABLET 1 TAB PO ×2 (04:20→09:59)
[2023-01-22] MEDS: KETOROLAC 10 MG TABLET PO ×2 (04:20→09:58)
[2023-01-22] MEDS: PIPERACILLIN/TAZO 3.375 GM in SODIUM CHLORIDE 0.9% 100 ML IV ×3 (04:47→20:47)
[2023-01-22] MEDS: CALCIUM CARBONATE 500 MG TAB 1000 MG PO ×2 (05:47→20:48)
[2023-01-22] MEDS: VANCOMYCIN 2,000 MG/400 ML PIGGYBACK 200 MG IV ×2 (06:33→18:48)
[2023-01-22] MEDS: SODIUM CHLORIDE 0.9% 1,000 ML 100 ML IV (06:37)
[2023-01-22 07:17] LABS: Add Manual Diff / Slide Review NO; Basophils Absolute Auto 100 /uL (0-100); Basophils Percent Auto 0.6 % (0-2); Eosinophils Absolute Auto 0 /uL (0-450); Eosinophils Percent Auto 0.3 % (2-4); Hematocrit 33.7 % (41-53); Hemoglobin 11.7 g/dL (13.5-17.5); Lymphocytes Absolute Auto 1000 /uL (1100-4500); Lymphocytes Percent Auto 9.4 % (25-40); Mean Corpuscular HGB Conc 34.8 % (30-36); Mean Corpuscular Hemoglobin 35.6 PG (26-34); Mean Corpuscular Volume 102.2 fL (80-100); Monocytes Absolute Auto 600 /uL (0-900); Monocytes Percent Auto 6.3 % (3-14); Neutrophils Absolute Auto 8500 /uL (1500-7000); Neutrophils Percent Auto 83.4 % (50-75); Platelet Count 204 X10^3/uL (150-400); Red Blood Cell Count 3.29 X10^6/uL (4.5-5.9); Red Cell Distribution Width 12.8 % (11.6-14.8); White Blood Cell Count 10.2 X10^3/uL (4.5-11.0)
[2023-01-22 07:25] LABS: Alanine Aminotransferase 29 IU/L (<50); Albumin Globulin Ratio 0.9 (1.0-2.8); Alkaline Phosphatase 80 U/L (38-126); Aspartate Aminotransferase 28 IU/L (17-59); BUN Creatinine Ratio 6.6 (6-22); Bilirubin Total 0.5 mg/dL (0.2-1.3); Blood Urea Nitrogen 4 mg/dL (9-20); Calcium 7.7 mg/dL (8.4-10.2); Carbon Dioxide 27 mmol/L (22-32); Chloride 101 mmol/L (98-107); Estimated Glomerular Filt Rate > 60 mL/min (>60); Globulin 3.3 g/dL (1.7-4.1); Glucose 140 mg/dL (70-100); HEMOLYSIS < 15 (0-50); Potassium 2.9 mmol/L (3.4-5.1); Sodium 133 mmol/L (137-145); Total Protein 6.3 g/dL (6.3-8.2)
--- NOTE | 2023-01-22 09:52 | PM.PN.1 ---
Subjective Subjective Date Patient Seen: 01/22/23 Time Patient Seen: 09:52 Interval history: chief complaint: left leg pain areas of cellulitis continues to recede on L leg but it is still quite painful, had a rough night last night with elevated temperature and restlessness. WBCs continue to trend down I think one more day of IV abx then convert to orals. Exam Vital Signs (past 8 hours): - 01/22/23 03:32 01/22/23 04:19 01/22/23 04:24 Temperature 99.4 F 101.1 F H 101.1 F H Pulse Rate 116 H 117 H Respiratory Rate 20 20 Blood Pressure 189/114 H 146/84 H Pulse Oximetry 100 98 Oxygen Flow Rate 0 01/22/23 05:46 01/22/23 08:00 Temperature 98.8 F 96.3 F L Pulse Rate 98 H Respiratory Rate 18 Blood Pressure 158/90 H Pulse Oximetry 94 Oxygen Flow Rate 0 Oxygen Delivery Method Room Air Oxygen Flow Rate 0 Narrative Exam Narrative: sweaty laying in bed looking ill Resp Other: clear to auscultation bilaterally Cardio Other: regular rate and rhythm S1/S2 no pedal edema in RLE GI Other: soft nontender nondistended Neuro General: patient alert, patient awake and patient oriented x3 Extrem Other: LLE cellulitis has receded significantly from previously marked borders although patient indicates it is still quite painful. Good dorsal pulse noted. Ambulation still quite painful, and patient indicates inner thigh is still most painful area. Objective Labs 01/22/23 06:36 01/22/23 06:49 Labs: Laboratory Results - last 24 hr 01/21/23 01/21/23 01/21/23 17:30 21:45 21:45 WBC RBC Hgb Hct MCV MCH MCHC RDW Plt Count Neut % (Auto) Lymph % (Auto) [place] % (Auto) Eos % (Auto) Baso % (Auto) Neut # (Auto) Lymph # (Auto) [place] # (Auto) Eos # (Auto) Baso # (Auto) Sodium Potassium Chloride Carbon Dioxide BUN Creatinine Estimated GFR BUN/Creatinine Ratio Glucose Lactate 0.9 Calcium Total Bilirubin AST ALT Alkaline Phosphatase Total Protein Albumin Globulin Albumin/Globulin Ratio Vancomycin Peak 26.4 Vancomycin Trough 8.0 L 01/22/23 01/22/23 06:36 06:49 WBC 10.2 RBC 3.29 L Hgb 11.7 L Hct 33.7 L MCV 102.2 H MCH 35.6 H MCHC 34.8 RDW 12.8 Plt Count 204 Neut % (Auto) 83.4 H Lymph % (Auto) 9.4 L [place] % (Auto) 6.3 Eos % (Auto) 0.3 L Baso % (Auto) 0.6 Neut # (Auto) 8500 H Lymph # (Auto) 1000 L [place] # (Auto) 600 Eos # (Auto) 0 Baso # (Auto) 100 Sodium 133 L Potassium 2.9 L Chloride 101 Carbon Dioxide 27 BUN 4 L Creatinine 0.61 L Estimated GFR > 60 BUN/Creatinine Ratio 6.6 Glucose 140 H Lactate Calcium 7.7 L Total Bilirubin 0.5 AST 28 ALT 29 Alkaline Phosphatase 80 Total Protein 6.3 Albumin 3.0 L Globulin 3.3 Albumin/Globulin Ratio 0.9 L Vancomycin Peak Vancomycin Trough PFSH Medical History (Updated 01/20/23 @ 03:20 by iZna Crisostomo DO) Chronic pain after traumatic injury Morbid obesity with body mass index (BMI) of 40.0 to 49.9 Nocturnal hypoxemia Obstructive sleep apnea Pre-diabetes Snoring Surgical History (Updated 03/01/21 @ 07:51 by Saritha Linn RN) History of surgery S/P excision of lipoma (08/13/19) Social History household members: none Smoking Status: Current every day smoker alcohol intake: current Assessment & Plan Assessment & Plan narrative: #sepsis #LLE cellulitis with lymphadenopathy WBCs continues to improve but still quite neutrophilic, continue vanc/zosyn and fluids, encourage mobilization as tolerated I do think he needs at least one more day of iv abx #hypokalemia #hypocalcemia #hyponatremia repleting and trending, encourage nutrition, reduce IVF #hypertension resume home losartan, prn hydralazine ordered #hx of diabetes Pt reports not on meds, sometime his A1c is over 10, lately has been under 6 he thinks. Will check A1c could be contributing to infectability if uncontrolled. BG on BMPs have been in low 100s. dispo: really quite acutely ill patient on presentation with the specific underlying cause of this acute illness not clear. Requiring continued inpatient management with broad spectrum antibiotics for probably 1 more days code: full PCP: Noemy Fajardo DVT: lovenox
[2023-01-22] MEDS: SODIUM CHLORIDE 1,000 MG TABLET 1000 MG PO (09:58)
[2023-01-22] MEDS: POTASSIUM CHLORIDE 20 MEQ TAB 40 MEQ PO (09:58)
[2023-01-22] MEDS: ENOXAPARIN 40 MG/0.4 ML SYRINGE SUBCUT (09:58)
[2023-01-22] MEDS: LOSARTAN 50 MG TABLET 100 MG PO (09:58)
[2023-01-22] MEDS: FLUoxetine 20 MG CAPSULE 60 MG PO (09:59)
[2023-01-22] MEDS: SODIUM CHLORIDE 0.9% FLUSH 10 ML IV ×2 (09:59→20:48)
[2023-01-22] MEDS: NICOTINE 7 MG PATCH TOP (11:55)
[2023-01-22] MEDS: HYDROCODONE/ACET 5/325 TABLET 2 TAB PO ×2 (15:20→20:20)
[2023-01-22] MEDS: TRAZODONE 50 MG TABLET PO (20:16)
[2023-01-23] VITALS (8 sets, daily range): BP systolic 146–174; BP diastolic 83–101; PULSE 80–100; RESP 17–20; TEMP 36.7–37.1; O2SAT 93–97
[2023-01-23 01:04] LABS: x Labcorp Estim. Avg Glu (eAG) 128 mg/dL (.); x Labcorp Hemoglobin A1c 6.1 % (4.8-5.6)
[2023-01-23] MEDS: SODIUM CHLORIDE 0.9% 1,000 ML 100 ML IV ×2 (01:07→14:55)
[2023-01-23] MEDS: HYDROCODONE/ACET 5/325 TABLET 2 TAB PO ×5 (01:08→20:49)
[2023-01-23] MEDS: PIPERACILLIN/TAZO 3.375 GM in SODIUM CHLORIDE 0.9% 100 ML IV ×3 (05:16→20:50)
[2023-01-23] MEDS: CALCIUM CARBONATE 500 MG TAB 1000 MG PO ×3 (05:16→20:49)
[2023-01-23] MEDS: VANCOMYCIN 2,000 MG/400 ML PIGGYBACK 200 MG IV ×2 (05:22→17:34)
[2023-01-23 06:07] LABS: Add Manual Diff / Slide Review NO; Basophils Absolute Auto 0 /uL (0-100); Basophils Percent Auto 0.4 % (0-2); Eosinophils Absolute Auto 100 /uL (0-450); Eosinophils Percent Auto 1.1 % (2-4); Hematocrit 34.6 % (41-53); Hemoglobin 11.8 g/dL (13.5-17.5); Lymphocytes Absolute Auto 1300 /uL (1100-4500); Lymphocytes Percent Auto 13.8 % (25-40); Mean Corpuscular HGB Conc 34.2 % (30-36); Mean Corpuscular Hemoglobin 34.8 PG (26-34); Mean Corpuscular Volume 101.6 fL (80-100); Monocytes Absolute Auto 1000 /uL (0-900); Monocytes Percent Auto 10.2 % (3-14); Neutrophils Absolute Auto 7000 /uL (1500-7000); Neutrophils Percent Auto 74.5 % (50-75); Platelet Count 236 X10^3/uL (150-400); Red Cell Distribution Width 12.9 % (11.6-14.8); White Blood Cell Count 9.3 X10^3/uL (4.5-11.0)
[2023-01-23 06:18] LABS: Alanine Aminotransferase 33 IU/L (<50); Albumin Globulin Ratio 0.9 (1.0-2.8); Alkaline Phosphatase 85 U/L (38-126); Aspartate Aminotransferase 33 IU/L (17-59); BUN Creatinine Ratio 11.3 (6-22); Bilirubin Total 0.6 mg/dL (0.2-1.3); Blood Urea Nitrogen 7 mg/dL (9-20); Calcium 8.5 mg/dL (8.4-10.2); Carbon Dioxide 28 mmol/L (22-32); Chloride 103 mmol/L (98-107); Estimated Glomerular Filt Rate > 60 mL/min (>60); Globulin 3.5 g/dL (1.7-4.1); Glucose 138 mg/dL (70-100); HEMOLYSIS < 15 (0-50); Potassium 3.2 mmol/L (3.4-5.1); Sodium 136 mmol/L (137-145); Total Protein 6.5 g/dL (6.3-8.2)
[2023-01-23] MEDS: ENOXAPARIN 40 MG/0.4 ML SYRINGE SUBCUT (08:18)
[2023-01-23] MEDS: POTASSIUM CHLORIDE 20 MEQ TAB 40 MEQ PO ×2 (08:18→17:34)
[2023-01-23] MEDS: LOSARTAN 50 MG TABLET 100 MG PO (08:19)
[2023-01-23] MEDS: FLUoxetine 20 MG CAPSULE 60 MG PO (08:19)
[2023-01-23] MEDS: NICOTINE 7 MG PATCH TOP (08:19)
[2023-01-23] MEDS: SODIUM CHLORIDE 1,000 MG TABLET 1000 MG PO (08:19)
--- NOTE | 2023-01-23 09:50 | PM.PN.1 ---
Subjective Subjective Date Patient Seen: 01/23/23 Time Patient Seen: 08:45 Interval history: CC: left leg cellulitis/pain Leg continues to improve he is able to bear brief weight on it, cellulitis area is still receding and L inner thigh area is improved however he is still quite sick having sweaty hot spells/chills overnight, this is still a big infection. Discussed option of going home he is intent on making sure this resolves completely and I agree. Appetite still reduced, sleeping ok. Exam Vital Signs (past 8 hours): - 01/23/23 05:50 01/23/23 08:00 Temperature 98.1 F 98.2 F Pulse Rate 100 H 82 Respiratory Rate 20 18 Blood Pressure 174/101 H 153/91 H Pulse Oximetry 94 93 Oxygen Flow Rate 0 0 Oxygen Delivery Method Room Air Oxygen Flow Rate 0 Narrative Exam Narrative: obese sleeping sweaty Resp Other: clear to ausctultation bilaterally Cardio Other: regular rate and rhythm S1/S2 GI Other: soft nontender nondistended Extrem Other: LLE with receding bright red erythema and swelling compared to previously marked borders but still quite extensive. inner thigh fading pink. Objective Labs 01/23/23 05:30 01/23/23 05:30 Labs: Laboratory Results - last 24 hr 01/21/23 01/23/23 01/23/23 05:36 05:30 05:30 WBC 9.3 RBC 3.40 L Hgb 11.8 L Hct 34.6 L MCV 101.6 H MCH 34.8 H MCHC 34.2 RDW 12.9 Plt Count 236 Neut % (Auto) 74.5 Lymph % (Auto) 13.8 L [place] % (Auto) 10.2 Eos % (Auto) 1.1 L Baso % (Auto) 0.4 Neut # (Auto) 7000 Lymph # (Auto) 1300 [place] # (Auto) 1000 H Eos # (Auto) 100 Baso # (Auto) 0 Sodium 136 L Potassium 3.2 L Chloride 103 Carbon Dioxide 28 BUN 7 L Creatinine 0.62 L Estimated GFR > 60 BUN/Creatinine Ratio 11.3 Glucose 138 H Hgb A1c (Ref Lab) 6.1 H Estim Average Glucose 128 Calcium 8.5 Total Bilirubin 0.6 AST 33 ALT 33 Alkaline Phosphatase 85 Total Protein 6.5 Albumin 3.0 L Globulin 3.5 Albumin/Globulin Ratio 0.9 L PFSH Medical History (Updated 01/20/23 @ 03:20 by Zina Crisostomo DO) Chronic pain after traumatic injury Morbid obesity with body mass index (BMI) of 40.0 to 49.9 Nocturnal hypoxemia Obstructive sleep apnea Pre-diabetes Snoring Surgical History (Updated 03/01/21 @ 07:51 by Saritha Linn RN) History of surgery S/P excision of lipoma (08/13/19) Social History household members: none Smoking Status: Current every day smoker alcohol intake: current Assessment & Plan Assessment & Plan narrative: #sepsis #LLE cellulitis with lymphadenopathy WBCs continues to improve but still neutrophilic, continue vanc/zosyn and fluids, encourage mobilization as tolerated I do think he needs at least one more day of iv abx #hypokalemia #hypocalcemia #hyponatremia improvement noted but still not within normal limits repleting and trending, encourage nutrition, reduce IVF #hypertension resume home losartan, prn hydralazine ordered #hx of diabetes Pt reports not on meds, sometime his A1c is over 10, lately has been under 6 he thinks. A1c this visit is 6.1. BGs in low 100s. Monitor. dispo: Still systemically ill with active residual cellulitis, needs continued inpatient management with broad spectrum antibiotics for probably 1 more days code: full PCP: Noemy Fajardo DVT: lovenox
[2023-01-23] MEDS: TRAZODONE 50 MG TABLET PO ×2 (20:50)
[2023-01-23] MEDS: SODIUM CHLORIDE 0.9% FLUSH 10 ML IV (20:51)
[2023-01-24] VITALS (9 sets, daily range): BP systolic 152–178; BP diastolic 77–99; PULSE 87–109; RESP 18–22; TEMP 36.3–37.1; O2SAT 93–96
[2023-01-24] MEDS: SODIUM CHLORIDE 0.9% 1,000 ML 100 ML IV (00:30)
[2023-01-24] MEDS: HYDROCODONE/ACET 5/325 TABLET 2 TAB PO ×5 (04:02→22:47)
[2023-01-24] MEDS: PIPERACILLIN/TAZO 3.375 GM in SODIUM CHLORIDE 0.9% 100 ML IV (05:26)
[2023-01-24] MEDS: CALCIUM CARBONATE 500 MG TAB 1000 MG PO ×3 (05:27→21:06)
[2023-01-24] MEDS: VANCOMYCIN 2,000 MG/400 ML PIGGYBACK 200 MG IV (06:16)
[2023-01-24] MEDS: VANCOMYCIN TROUGH 1 REQUEST MISC (06:16)
[2023-01-24 06:36] LABS: Vancomycin Trough 8.3 ug/mL (10-20)
[2023-01-24] MEDS: POTASSIUM CHLORIDE 20 MEQ TAB 40 MEQ PO ×2 (08:23→18:00)
[2023-01-24] MEDS: ENOXAPARIN 40 MG/0.4 ML SYRINGE SUBCUT (08:23)
[2023-01-24] MEDS: LOSARTAN 50 MG TABLET 100 MG PO (08:23)
[2023-01-24] MEDS: SODIUM CHLORIDE 1,000 MG TABLET 1000 MG PO (08:24)
[2023-01-24] MEDS: NICOTINE 7 MG PATCH TOP (08:24)
--- NOTE | 2023-01-24 08:26 | P.PN_ITS ---
Subjective Subjective Date Patient Seen: 01/24/23 Time Patient Seen: 08:26 Interval history: Patient seen in follow-up of sepsis and cellulitis. Patient is still not feeling great but otherwise seems to be doing well. No other changes. Less pain in his thigh. No other changes. Exam Vital Signs (past 8 hours): - 01/24/23 03:50 01/24/23 08:23 Temperature 98.7 F Pulse Rate 109 H 109 H Respiratory Rate 22 Blood Pressure 178/96 H 178/96 H Pulse Oximetry 93 Oxygen Flow Rate 0 Oxygen Delivery Method Room Air Oxygen Flow Rate 0 Narrative Exam Narrative: Alert male smiling fatigued in appearance Lungs are clear heart is regular rate and rhythm left leg shows primarily erythema and slightly raised almost blistering area around his lower leg. Certainly not worse than it was. No other changes. Objective Labs 01/23/23 05:30 01/23/23 05:30 Labs: Laboratory Results - last 24 hr 01/24/23 05:53 Vancomycin Trough 8.3 L PFS Medical History (Updated 01/20/23 @ 03:20 by Zina Crisostomo DO) Chronic pain after traumatic injury Morbid obesity with body mass index (BMI) of 40.0 to 49.9 Nocturnal hypoxemia Obstructive sleep apnea Pre-diabetes Snoring Surgical History (Updated 03/01/21 @ 07:51 by Saritha Linn RN) History of surgery S/P excision of lipoma (08/13/19) Social History household members: none Smoking Status: Current every day smoker alcohol intake: current Assessment & Plan Assessment & Plan narrative: Cellulitis left leg. Patient feeling better. Less pain in his leg. Clinically feeling slightly better but not a lot. White count is trending downward. No fevers. Erythema seems to be slightly improved certainly in the his thigh. Did not see it previously. We discussed options. Will switch to oral. Would like to use Bactrim but unable to secondary to interactions. Will switch to Au gmentin and will recheck CBC and follow over the next 24 hours if stable can go home tomorrow. Hypokalemia. Need to check today. Will recheck. Sepsis. Vital signs all seem to be stable. Will discontinue IV and re-evaluate in a.m.. Hypoglycemia. Previously treated will recheck in a.m.. Hypertension. Will see how things go. Has not done perfect but will see how things go. He understands. Will call if change. History of diabetes. Overall doing well. Continue current meds. Code status full. GI prophylaxis not needed Disposition. Expect will go home soon hopefully tomorrow. 45 minutes spent reviewing chart discussing with partner patient orders dictation
[2023-01-24 08:48] LABS: BUN Creatinine Ratio 9.4 (6-22); Blood Urea Nitrogen 5 mg/dL (9-20); Calcium 8.6 mg/dL (8.4-10.2); Carbon Dioxide 26 mmol/L (22-32); Chloride 104 mmol/L (98-107); Estimated Glomerular Filt Rate > 60 mL/min (>60); Glucose 133 mg/dL (70-100); HEMOLYSIS 17 (0-50); Potassium 3.4 mmol/L (3.4-5.1); Sodium 136 mmol/L (137-145)
[2023-01-24 09:39] LABS: Vancomycin Peak 29.2 ug/mL (20-40)
[2023-01-24] MEDS: FLUoxetine 20 MG CAPSULE 60 MG PO (10:00)
[2023-01-24] MEDS: SODIUM CHLORIDE 0.9% FLUSH 10 ML IV ×2 (10:00→21:06)
[2023-01-24] MEDS: AMOXICILLIN/CLAV 875/125 MG 1 TAB PO ×2 (10:14→21:06)
--- NOTE | 2023-01-24 14:37 | CM.DPC ---
DCP Cont: Per MD, pt making progress and had his last dose of IV-Abx and switched to orals today and if pt remains stable today on orals then plan is discharge tomorrow 01/25 to home with po meds and no further identified discharge planning needs. Pt is independent with ADLS and in room. Plan: SW to follow to confirm pt safe for d/c home tomorrow if medically stable and any further identified discharge needs. KALEE Pike
[2023-01-24] MEDS: TRAZODONE 50 MG TABLET PO (21:06)
[2023-01-25 00:11] VITALS: BP 174/96; PULSE 96; RESP 18; TEMP 36.4; O2SAT 93
[2023-01-25] MEDS: HYDROCODONE/ACET 5/325 TABLET 2 TAB PO ×2 (03:08→08:01)
[2023-01-25 04:16] VITALS: BP 143/79; PULSE 87; RESP 20; TEMP 36.6; O2SAT 93
[2023-01-25] MEDS: CALCIUM CARBONATE 500 MG TAB 1000 MG PO (05:26)
[2023-01-25 06:49] LABS: Add Manual Diff / Slide Review NO; Basophils Absolute Auto 100 /uL (0-100); Basophils Percent Auto 0.8 % (0-2); Eosinophils Absolute Auto 100 /uL (0-450); Eosinophils Percent Auto 1.5 % (2-4); Hematocrit 31.6 % (41-53); Hemoglobin 11.1 g/dL (13.5-17.5); Lymphocytes Absolute Auto 1500 /uL (1100-4500); Lymphocytes Percent Auto 17.7 % (25-40); Mean Corpuscular HGB Conc 35.1 % (30-36); Mean Corpuscular Hemoglobin 35.6 PG (26-34); Mean Corpuscular Volume 101.2 fL (80-100); Monocytes Absolute Auto 900 /uL (0-900); Monocytes Percent Auto 9.9 % (3-14); Neutrophils Absolute Auto 6100 /uL (1500-7000); Neutrophils Percent Auto 70.1 % (50-75); Platelet Count 349 X10^3/uL (150-400); Red Blood Cell Count 3.13 X10^6/uL (4.5-5.9); Red Cell Distribution Width 12.9 % (11.6-14.8); White Blood Cell Count 8.7 X10^3/uL (4.5-11.0)
[2023-01-25 06:52] LABS: Alanine Aminotransferase 38 IU/L (<50); Albumin Globulin Ratio 0.9 (1.0-2.8); Alkaline Phosphatase 82 U/L (38-126); Aspartate Aminotransferase 29 IU/L (17-59); BUN Creatinine Ratio 11.9 (6-22); Bilirubin Total 0.4 mg/dL (0.2-1.3); Blood Urea Nitrogen 7 mg/dL (9-20); Calcium 9.1 mg/dL (8.4-10.2); Carbon Dioxide 30 mmol/L (22-32); Chloride 102 mmol/L (98-107); Estimated Glomerular Filt Rate > 60 mL/min (>60); Globulin 3.3 g/dL (1.7-4.1); Glucose 152 mg/dL (70-100); HEMOLYSIS < 15 (0-50); Potassium 3.2 mmol/L (3.4-5.1); Sodium 137 mmol/L (137-145); Total Protein 6.3 g/dL (6.3-8.2)
[2023-01-25 07:32] VITALS: O2SAT 92
[2023-01-25 08:00] VITALS: BP 172/106; PULSE 80; RESP 18; TEMP 36.1; O2SAT 92
[2023-01-25] MEDS: ENOXAPARIN 40 MG/0.4 ML SYRINGE SUBCUT (08:00)
[2023-01-25] MEDS: POTASSIUM CHLORIDE 20 MEQ TAB 40 MEQ PO (08:01)
[2023-01-25] MEDS: FLUoxetine 20 MG CAPSULE 60 MG PO (08:01)
[2023-01-25] MEDS: NICOTINE 7 MG PATCH TOP (08:01)
[2023-01-25] MEDS: SODIUM CHLORIDE 1,000 MG TABLET 1000 MG PO (08:01)
[2023-01-25 08:02] VITALS: BP 172/106
[2023-01-25] MEDS: LOSARTAN 50 MG TABLET 100 MG PO (08:02)
[2023-01-25] MEDS: AMOXICILLIN/CLAV 875/125 MG 1 TAB PO (08:03)
[2023-01-25] MEDS: SODIUM CHLORIDE 0.9% FLUSH 10 ML IV (08:03)
--- NOTE | 2023-01-25 08:47 | P.DS_ITS ---
History of Present Illness History of Present Illness Date Patient Seen: 01/25/23 Time Patient Seen: 08:47 Date of Onset of Symptoms: 01/19/23 Chief complaint: N, dizzy, fever Narrative: The pt was brought to the ER due to overwhelming fatigue and headaches which started earlier in the day. He reports sleeping most of the day on the 10th w hich is unsual for him. In the Er he was tachycardic, with a WBC of 20 and a LA of 4.2. He was camping 3 days ago and is uncertain if he had any exposure to ticks, insects or poisonous plants. He denies any neck stiffness, fevers, chills, cough, sputum production, CP, N/V/Diarrhea or rashes. [place] did have a crush injury to his RLE 10 years ago and now has a bruising area over the left thigh that he does not know where it came from. Discharge Providers Provider Date of admission: 01/20/23 03:20 Discharge Date: 01/25/23 Primary care physician: Ronni Fajardo MD Discharge provider: Ronni Fajardo MD Summary Hospital Course Discharge Diagnosis: Sepsis syndrome. Cellulitis left leg Hypokalemia Hypoglycemia Hypertension History of diabetes Hospital Course: Sepsis syndrome. Patient was admitted with hypotension elevated white count elevated lactic acid. Patient was aggressively hydrated over the next 24 hours. And clinically began to improve. Source of infection after aggressive evaluation was felt to be secondary to the cellulitis in his left leg. Antibiotics were aggressively treated with broad-spectrum antibiotics with improvement in white count improvement in symptoms resolution of hypotension. On day 3-4 sepsis syndrome was resolved with no other changes. Cellulitis left leg. Patient had pain all the way up into his thigh. There was no evidence of DVT or other changes. Cultures remain negative without significant findings. Was aggressively treated and switch to Augmentin he was watched for 24 hours continued to slowly improve and will be discharged on Augmentin as an outpatient. Will be followed up in 1 week. Hypokalemia. Patient was noted to be hypokalemic early on was treated with potassium. As of the day prior to discharge is number was normal although it did decrease slightly on the day of discharge. He will be sent home on 40 mEq b.i.d. and will be followed up with repeat testing next week at follow-up. Hypertension. Was followed and no issue. Hypoglycemia. Patient was treated with IV replacement and had no further problems after initial low sugar History of diabetes. Stable. Usual treatment Exam Vital Signs (past 8 hours): - 01/25/23 04:16 01/25/23 07:32 01/25/23 08:02 Temperature 98 F Pulse Rate 87 Respiratory Rate 20 Blood Pressure 143/79 H 172/106 H Pulse Oximetry 93 92 Oxygen Delivery Method Room Air Oxygen Flow Rate 0 0 01/25/23 08:00 Temperature 96.9 F L Pulse Rate 80 Respiratory Rate 18 Blood Pressure 172/106 H Pulse Oximetry 92 Oxygen Delivery Method Oxygen Flow Rate 0 Oxygen Delivery Method Room Air Oxygen Flow Rate 0 Narrative Exam Narrative: Alert male smiling in no acute distress Lungs are clear heart is regular rate and rhythm abdomen is soft positive bowel sounds nontender. Left thigh shows no erythema. No tenderness. Does have some tenderness in the anterior crawley with erythema and almost blistering noted but actually significantly improved in the posterior aspect and trending in the ri ght direction Objective Labs 01/25/23 06:15 01/25/23 06:15 Labs: Laboratory Results - last 24 hr 01/24/23 01/24/23 01/25/23 05:53 09:05 06:15 WBC 8.7 RBC 3.13 L Hgb 11.1 L Hct 31.6 L MCV 101.2 H MCH 35.6 H MCHC 35.1 RDW 12.9 Plt Count 349 Neut % (Auto) 70.1 Lymph % (Auto) 17.7 L [place] % (Auto) 9.9 Eos % (Auto) 1.5 L Baso % (Auto) 0.8 Neut # (Auto) 6100 Lymph # (Auto) 1500 [place] # (Auto) 900 Eos # (Auto) 100 Baso # (Auto) 100 Sodium 136 L Potassium 3.4 Chloride 104 Carbon Dioxide 26 BUN 5 L Creatinine 0.53 L Estimated GFR > 60 BUN/Creatinine Ratio 9.4 Glucose 133 H Calcium 8.6 Total Bilirubin AST ALT Alkaline Phosphatase Total Protein Albumin Globulin Albumin/Globulin Ratio Vancomycin Peak 29.2 01/25/23 06:15 WBC RBC Hgb Hct MCV MCH MCHC RDW Plt Count Neut % (Auto) Lymph % (Auto) [place] % (Auto) Eos % (Auto) Baso % (Auto) Neut # (Auto) Lymph # (Auto) [place] # (Auto) Eos # (Auto) Baso # (Auto) Sodium 137 Potassium 3.2 L Chloride 102 Carbon Dioxide 30 BUN 7 L Creatinine 0.59 L Estimated GFR > 60 BUN/Creatinine Ratio 11.9 Glucose 152 H Calcium 9.1 Total Bilirubin 0.4 AST 29 ALT 38 Alkaline Phosphatase 82 Total Protein 6.3 Albumin 3.0 L Globulin 3.3 Albumin/Globulin Ratio 0.9 L Vancomycin Peak [facility] Medical History (Updated 01/20/23 @ 03:20 by Zina Crisostomo DO) Chronic pain after traumatic injury Morbid obesity with body mass index (BMI) of 40.0 to 49.9 Nocturnal hypoxemia Obstructive sleep apnea Pre-diabetes Snoring Surgical History (Updated 03/01/21 @ 07:51 by Saritha Linn RN) History of surgery S/P excision of lipoma (08/13/19) Social History household members: none Smoking Status: Current every day smoker alcohol intake: current Discharge Assessment & Plan Assessment and Plan Assessment: Improving Plan of Treatment: Discharge home Discharge Plan Discharge Plan Patient Disposition: Home Discharge orders & Medications Prescriptions: New potassium chloride [Klor-Con M20] 20 mEq Tablet,Er Particles/Crystals 40 meq PO BIDWM Qty: 60 1RF amoxicillin-pot clavulanate 875-125 mg Tablet 1 tab PO BID Qty: 20 0RF Continued losartan 100 mg Tablet 100 mg PO DAILY fluoxetine 40 mg capsule 40 mg PO DAILY Patient Comments: TAKE ONE CAPSULE BY MOUTH ONE TIME DAILY trazodone 50 mg tablet 50 mg PO DAILY Patient Comments: TAKE 1/2 TO ONE TABLET BY MOUTH EVERY NIGHT NEEDED fluoxetine 20 mg capsule 20 mg PO DAILY Patient Comments: TAKE THREE CAPSULES BY MOUTH DAILY hydrocodone-acetaminophen 5-325 mg tablet 1 tab PO Q4HR PRN (Reason: Pain (Scale Score 1-3)) Follow up/Referrals: Ronni Fajardo MD [Primary Care Provider] - 1 Week (Please call for appointment) Discharge Health Status Multidrug resistant organism: No MDRO Diet/Activity/Treatments Diet: Diet as Tolerated and Carb-consistent/Diabetic Diet comment: Usual diet for his diabetes Activity: As tolerated Skin/Wound/Dressing Care Report to your healthcare provider any signs of infection, such as:: chills, fever and increased pain Visit Report/Discharge Packet Stand Alone Forms: Patient Portal/API, Stroke Signs & Symptoms Discharge Data Primary Care Provider: Ronni Fajardo
--- NOTE | 2023-01-25 10:45 | PC.NURSE ---
Pt is dressed and ready for discharge home with family. IV has been removed. Went over d/c instructions with Pt-discussed d/c meds, time of last dose, reviewed stroke education, encouraged Pt to keep leg elevated when able - to reduce swelling, discussed contacting his physician if his leg does not continue to improve, reminded him to have his potassium level rechecked since he will be taking oral potassium and to follow up as scheduled. Also reminded Pt to take his full dose of abx as prescribed and to drink plenty of fluids to prevent constipation or dehydration. Pt denied further questions and was taken out via w/c by [employer] to POV with family and all belongings.
== END 2023-01-25 11:00 | disposition home or self-care (01) | DRG 720 ==
LOC: ED 02:58 → AC 03:20
PROVIDERS: Admitting Provider Internal Medicine; Emergency Provider Emergency Medicine; PCP Family Medicine; Referring Provider Emergency Medicine; Visit Provider Family Medicine
DX: A41.9 Sepsis, unspecified organism (principal); L03.116 Cellulitis of left lower limb; G89.29 Other chronic pain; M79.604 Pain in right leg; R51.9 Headache, unspecified; R59.1 Generalized enlarged lymph nodes; E87.6 Hypokalemia; E83.51 Hypocalcemia; I10 Essential (primary) hypertension; E87.1 Hypo-osmolality and hyponatremia; E11.649 Type 2 diabetes mellitus with hypoglycemia without coma; F17.210 Nicotine dependence, cigarettes, uncomplicated
CPT/HCPCS: 36415; 70460; 71045; 74177; 80048; 80053; 80202; 80305; 81003; 81015; 82550; 82962; 83036; 83605; 83690; 84132; 84145; 84484; 85025; 85610; 85651; 85730; 87040; 87633; 93971; 94760; 96365; 96375; 99284; 99285; 99406; J0360; J1170; J1650; J1885; J2270; J2543; Q9967

== ENCOUNTER → 2023-02-23 13:51 | Outpatient (CLI) | payer OTHER, MEDICAID, SELFPAY ==
[2023-01-20 03:35] VITALS: BMI 37.3
--- NOTE | 2023-02-23 | DI.RAD.S_ITS ---
PROCEDURE: XR CHEST 2V INDICATIONS: COUGH TECHNIQUE: 2 views of the chest were acquired. COMPARISON: [facility], CR, XR CHEST 2V, 11/16/2021, 11:20. FINDINGS: Surgical changes and devices: None. Lungs and pleura: Lungs are clear. No pleural effusions or pneumothorax. Mediastinum: Mediastinal contours are normal. Heart size is normal. Bones and chest wall: No suspicious bony abnormalities. Soft tissues appear unremarkable. IMPRESSION: No acute cardiopulmonary abnormality is seen. Dictated by: Katey Means MD, PhD on 02/23/2023 at 14:48 Approved by: Katey Means MD, PhD on 02/23/2023 at 14:49
== END ==
PROVIDERS: PCP Family Medicine; Referring Provider Family Medicine; Visit Provider Family Medicine
DX: R05.1 Acute cough (principal)
CPT/HCPCS: 71046

== ENCOUNTER → 2023-05-17 14:23 | Outpatient (CLI) | payer OTHER, MEDICAID, SELFPAY ==
[2023-01-20 03:35] VITALS: BMI 37.3
--- NOTE | 2023-05-17 | DI.US.S_ITS ---
PROCEDURE: US ABDOMEN LIMITED INDICATIONS: Right upper quadrant pain TECHNIQUE: Real-time scanning was performed of the abdominal and retroperitoneal organs, with image documentation. COMPARISON: None. FINDINGS: Liver: Normal in size. Increased in echogenicity. Poorly seen secondary to poor penetration. Gallbladder: Within normal limits. No gallstones or gallbladder wall thickening. Biliary ducts: Intrahepatic bile ducts are non-dilated. Extrahepatic bile duct caliber measures 5.1 mm. Normal is 6-7 mm or less in diameter, or 10 mm or less post-cholecystectomy. Pancreas: Not seen secondary to overlying bowel gas. IMPRESSION: 1. Increased hepatic echogenicity noted possibly related to hepatic steatosis but other sources of hepatocellular disease or hepatic cirrhosis cannot be excluded. Recommend clinical correlation. 2. Gallbladder is within normal limits. No biliary ductal dilatation. Dictated by: Mendoza Paulson M.D. on 05/17/2023 at 15:49 Approved by: Mendoza Paulson M.D. on 05/17/2023 at 15:51
== END ==
PROVIDERS: PCP Family Medicine; Referring Provider Family Medicine; Visit Provider Family Medicine
DX: R10.11 Right upper quadrant pain (principal)
CPT/HCPCS: 76705

== ENCOUNTER 2023-07-04 16:32 | Emergency (ER) | payer OTHER, MEDICAID, SELFPAY ==
[2023-01-20 03:35] VITALS: BMI 37.3
[2023-07-04] VITALS (11 sets, daily range): BP systolic 134–172; BP diastolic 71–95; PULSE 94–131; RESP 15–25; TEMP 36.6; O2SAT 94–98; BMI 36.2
[2023-07-04 17:03] LABS: Add Manual Diff / Slide Review NO; Basophils Absolute Auto 100 /uL (0-100); Eosinophils Absolute Auto 0 /uL (0-450); Eosinophils Percent Auto 0.4 % (2-4); Hematocrit 42.3 % (41-53); Hemoglobin 14.8 g/dL (13.5-17.5); Lymphocytes Absolute Auto 1900 /uL (1100-4500); Mean Corpuscular HGB Conc 34.9 % (30-36); Mean Corpuscular Hemoglobin 35.9 PG (26-34); Mean Corpuscular Volume 102.9 fL (80-100); Monocytes Absolute Auto 600 /uL (0-900); Monocytes Percent Auto 7.4 % (3-14); Neutrophils Absolute Auto 5400 /uL (1500-7000); Neutrophils Percent Auto 67.2 % (50-75); Platelet Count 230 X10^3/uL (150-400); Red Blood Cell Count 4.11 X10^6/uL (4.5-5.9)
[2023-07-04] MEDS: HYDROMORPHONE 1 MG INJ IV (17:08)
[2023-07-04] MEDS: SODIUM CHLORIDE 0.9% 1,000 ML 1000 ML IV (17:08)
[2023-07-04] MEDS: ONDANSETRON 4 MG/2 ML INJ IV (17:08)
[2023-07-04 17:17] LABS: Alanine Aminotransferase 89 IU/L (<50); Albumin 3.5 g/dL (3.5-5.0); Alkaline Phosphatase 91 U/L (38-126); Aspartate Aminotransferase 116 IU/L (17-59); BUN Creatinine Ratio 16.9 (6-22); Bilirubin Total 1.3 mg/dL (0.2-1.3); Blood Urea Nitrogen 20 mg/dL (9-20); Calcium 8.3 mg/dL (8.4-10.2); Carbon Dioxide 26 mmol/L (22-32); Chloride 103 mmol/L (98-107); Estimated Glomerular Filt Rate > 60 mL/min (>60); Globulin 3.4 g/dL (1.7-4.1); Glucose 185 mg/dL (70-100); HEMOLYSIS 31 (0-50); Lipase 118 U/L (23-300); Sodium 137 mmol/L (137-145); Total Protein 6.9 g/dL (6.3-8.2)
--- NOTE | 2023-07-04 17:20 | ED_ITS ---
HPI - Abdominal Pain General Chief Complaint: Abdominal Pain Stated Complaint: bowel issues, pain Time Seen by Provider: 07/04/23 17:17 Source: patient Mode of arrival: Ambulatory History of Present Illness HPI narrative: Patient is a 47-year-old male history of diabetes, appendectomy, umbilical hernia, presenting today with lower abdominal pain and change in bowel habits. He reports that for the past few days he has had difficulty with bowel habits straining really hard having small amounts out. He is tried [id number] medication with enema MiraLax etc. without significant success. He is having bilateral testicular pain he feels like some sharp shooting pain. Difficulty with urination as well. He denies any fever or chills. He was in extreme pain when 1st arrived having diaphoresis. He has been having some intermittent nausea vomiting almost every time he eats daily. He reports his PCP is working him up. I suspect for gastroparesis. He is denying any chest pain or palpitations. Related Data Home Medications Medication Instructions Recorded Confirmed hydrocodone 5 mg-acetaminophen 325 1 tab PO Q4HR PRN Pain (Scale 02/21/19 01/20/23 mg tablet Score 1-3) fluoxetine 20 mg capsule 20 mg PO DAILY 05/17/22 01/20/23 fluoxetine 40 mg capsule 40 mg PO DAILY 05/17/22 01/20/23 trazodone 50 mg tablet 50 mg PO DAILY 05/17/22 01/20/23 losartan 100 mg tablet 100 mg PO DAILY 01/21/23 01/21/23 Previous Rx's Medication Instructions Recorded amoxicillin 875 mg-potassium 1 tab PO BID #20 tabs 01/25/23 clavulanate 125 mg tablet potassium chloride 20 mEq 40 meq (2 x 20 mEq) PO BIDWM #60 01/25/23 tablet,extended tabs release(part/cryst) (Klor-Con M) methocarbamol 750 mg tablet 750 mg PO Q8H PRN muscle spasm #14 07/04/23 tabs Allergies Allergy/AdvReac Type Severity Reaction Status Date / Time No Known Drug Allergies Allergy Verified 05/17/22 10:56 Patient History Medical History Chronic pain after traumatic injury Pre-diabetes Nocturnal hypoxemia Snoring Obstructive sleep apnea Morbid obesity with body mass index (BMI) of 40.0 to 49.9 Surgical History History of surgery S/P excision of lipoma (08/13/19) Social History household members: none Smoking Status: Current every day smoker alcohol intake: current Smoking Status: Current every day smoker tobacco type: e-cigarettes alcohol intake frequency: 0-2 drinks per day Alcohol type: beer Substance Use Type: does not use Exam Initial Vital Signs Initial Vital Signs: Vital Signs Temperature 98 F 07/04/23 16:36 Pulse Rate 123 H 07/04/23 16:36 Respiratory Rate 20 07/04/23 16:36 Blood Pressure 147/90 H 07/04/23 16:36 Pulse Oximetry 98 07/04/23 16:36 Oxygen Delivery Method Room Air 07/04/23 16:36 GENERAL: Alert 47-year-old male appears uncomfortable mildly diaphoretic HEENT: Head atraumatic,EOMI, pupils reactive, face symmetric, moist mucous membranes CARDIOVASCULAR: Regular rate and rhythm without murmurs, rubs or gallops. RESPIRATORY: Breath sounds equal bilaterally, no wheezes rales or rhonchi. ABDOMEN: Soft, nontender. Normoactive bowel sounds all 4 quadrants. No guarding or rebound. : Nurse Marisabel present no significant testicular swelling or pain no erythema no obvious abscess No CVA tenderness RECTAL: No obvious hemorrhoid abscess or erythema in rectal area or peroneal area EXTREMITIES: Normal range of motion, no clubbing or edema. Neurovascularly intact NEUROLOGICAL: Alert and oriented x4.Normal gait and speech. SKIN: Warm, dry, no laceration, no petechiae, no rashes or lesions. Course Orders Ordered: ED Orders 07/04/23 16:43 EKG-12 Lead Stat 07/04/23 16:55 Complete Blood Count AUTO DIFF Stat Comprehensive Metabolic Panel Stat Lipase Stat 07/04/23 17:30 CT abdomen pelvis w con Stat Ondansetron HCl (Ondansetron 4 Mg/2 Ml Inj) 4 mg IV NOW PRN PRN Reason: Nausea And Vomiting Last Admin: 07/04/23 17:08 Dose: 4 mg Documented By: MICKEY Ondansetron HCl (Ondansetron 4 Mg Odt) 4 mg PO NOW PRN PRN Reason: Nausea And Vomiting Discontinued Medications Cyclobenzaprine HCl (Cyclobenzaprine 10 Mg Tablet) 5 mg PO NOW ONE Stop: 07/04/23 19:00 Last Admin: 07/04/23 19:13 Dose: 5 mg Documented By: ALEKSANDRA Cyclobenzaprine HCl (Cyclobenzaprine 10 Mg Prepack) 1 bottle MISC DIRECTED ONE Stop: 07/04/23 19:00 Last Admin: 07/04/23 19:14 Dose: 1 bottle Documented By: ALEKSANDRA Hydromorphone HCl (Hydromorphone 1 Mg Inj) 1 mg IV NOW ONE Stop: 07/04/23 17:05 Last Admin: 07/04/23 17:08 Dose: 1 mg Documented By: MICKEY Hydromorphone HCl (Hydromorphone 0.5 Mg Inj) 0.5 mg IV NOW ONE Stop: 07/04/23 17:31 Last Admin: 07/04/23 17:46 Dose: 0.5 mg Documented By: Sodium Chloride (Normal Saline 0.9%) 1,000 mls @ 1,000 mls/hr IV BOLUS ONE Stop: 07/04/23 18:03 Last Infusion: 07/04/23 18:41 Dose: Infused Documented By: Admin: 07/04/23 17:08 Dose: 1,000 mls/hr Documented By: MICKEY Ketorolac Tromethamine (Ketorolac 30 Mg/Ml Vial) 15 mg IV NOW ONE Stop: 07/04/23 18:58 Last Admin: 07/04/23 19:13 Dose: 15 mg Documented By: ALEKSANDRA Magnesium Citrate (Magnesium Citrate 300 Ml Solution) 300 ml PO NOW ONE Stop: 07/04/23 19:11 Last Admin: 07/04/23 19:25 Dose: 300 ml Documented By: MICKEY Vital Signs Vital signs: Vital Signs - 8 hr 07/04/23 16:36 07/04/23 16:47 07/04/23 16:49 Temperature 98 F Pulse Rate 123 H 120 H 116 H Respiratory Rate 20 15 16 Blood Pressure 147/90 H Pulse Oximetry 98 98 Oxygen Delivery Method Room Air 07/04/23 16:49 07/04/23 17:00 07/04/23 17:16 Temperature Pulse Rate 114 H 110 H Respiratory Rate 20 16 Blood Pressure 172/95 H Pulse Oximetry 97 96 Oxygen Delivery Method 07/04/23 17:16 07/04/23 17:30 07/04/23 17:31 Temperature Pulse Rate 131 H Respiratory Rate 25 H Blood Pressure 138/83 141/91 H Pulse Oximetry 97 Oxygen Delivery Method 07/04/23 17:31 07/04/23 18:00 07/04/23 18:30 Temperature Pulse Rate 116 H 97 H 95 H Respiratory Rate 20 19 20 Blood Pressure Pulse Oximetry 97 98 97 Oxygen Delivery Method 07/04/23 19:00 Temperature Pulse Rate 94 H Respiratory Rate 22 Blood Pressure Pulse Oximetry 94 Oxygen Delivery Method MDM - Abdominal Pain Lab Data 07/04/23 16:55 07/04/23 16:55 Labs: Lab Results 07/04/23 Range/Units 16:55 WBC 8.0 (4.5-11.0) X10^3/uL RBC 4.11 L (4.5-5.9) X10^6/uL Hgb 14.8 (13.5-17.5) g/dL Hct 42.3 (41-53) % MCV 102.9 H (80-100) fL MCH 35.9 H (26-34) PG MCHC 34.9 (30-36) % RDW 13.0 (11.6-14.8) % Plt Count 230 (150-400) X10^3/uL Neut % (Auto) 67.2 (50-75) % Lymph % (Auto) 24.0 L (25-40) % Menard % (Auto) 7.4 (3-14) % Eos % (Auto) 0.4 L (2-4) % Baso % (Auto) 1.0 (0-2) % Neut # (Auto) 5400 (2583-1012) /uL Lymph # (Auto) 1900 (2761-5025) /uL Menard # (Auto) 600 (0-900) /uL Eos # (Auto) 0 (0-450) /uL Baso # (Auto) 100 (0-100) /uL Sodium 137 (137-145) mmol/L Potassium 3.0 L (3.4-5.1) mmol/L Chloride 103 (98-107) mmol/L Carbon Dioxide 26 (22-32) mmol/L BUN 20 (9-20) mg/dL Creatinine 1.18 (0.66-1.25) mg/dL Estimated GFR > 60 (>60) mL/min BUN/Creatinine Ratio 16.9 (6-22) Glucose 185 H (70-100) mg/dL Calcium 8.3 L (8.4-10.2) mg/dL Total Bilirubin 1.3 (0.2-1.3) mg/dL AST 116 H (17-59) IU/L ALT 89 H (<50) IU/L Alkaline Phosphatase 91 (38-126) U/L Total Protein 6.9 (6.3-8.2) g/dL Albumin 3.5 (3.5-5.0) g/dL Globulin 3.4 (1.7-4.1) g/dL Albumin/Globulin Ratio 1.0 (1.0-2.8) Lipase 118 (23-300) U/L Point of care testing: Urine Dip Bedside Urine Glucose Negative Bedside Urine Bilirubin - Negative Bedside Urine Ketone - Negative Urine Specific Elizabeth 1.010 Bedside Urine Occult Blood - Negative Bedside Urine pH 5.5 Bedside Urine Protein +/- 15 Bedside Urine Urobilinogen - Negative Bedside Urine Nitrite - Negative Bedside Urine Leukocytes - Negative Esterase Imaging Data CT scan - abdomen/pelvis: Radiologist's Impression: PROCEDURE: CT ABDOMEN PELVIS W CON INDICATIONS: severe lower ab pain, difficulty BM and urination TECHNIQUE: After the administration of intravenous contrast, axial sections acquired from the lung bases to the pubic symphysis. Coronal and sagittal reformats were performed. For radiation dose reduction, the following was used: automated exposure control, adjustment of mA and/or kV according to patient size. COMPARISON: [facility], CT, CT ABDOMEN PELVIS W CON, 01/20/2023, 1:36. FINDINGS: Image quality: Diagnostic. Lower Chest: No significant findings. ABDOMEN: Liver: Mild hepatomegaly and moderate hepatic steatosis, no discrete hepatic lesion. Gallbladder: No radiopaque gallstones or wall thickening. Biliary ducts: No biliary dilation. Pancreas: No ductal dilation. Spleen: Size is within normal limits. Adrenal Glands: No adrenal nodules. Kidneys and Ureters: No hydronephrosis. No solid mass. No complex renal cystic lesion which requires follow up. Stomach and Bowel: There is no bowel obstruction. No abnormal small bowel or gastric wall thickening. No abnormal colonic wall thickening. No abscess collection. Descending colon and sigmoid diverticulosis is seen without definite colonic wall thickening or significant pericolonic fat stranding. No abscess collection. Peritoneum: No abnormal intraperitoneal fluid. No free air. Ventral Wall: No hernia. Abdominal Nodes: No retroperitoneal or mesenteric adenopathy by size criteria. Vessels: Aorta and inferior vena cava are normal in size. PELVIS: Pelvic Organs: Unremarkable. Bladder: Unremarkable. Pelvic Nodes: No enlarged lymph nodes. Miscellaneous: No inguinal hernias are seen. Bones: No aggressive osseous abnormality. No acute vertebral body compression fracture. IMPRESSION: 1. No bowel obstruction or abnormal bowel wall thickening. Colonic diverticulosis without CT evidence of acute diverticulitis. No abscess collection. No free fluid or free air. 2. No renal stones or hydronephrosis. 3. Hepatomegaly and hepatic steatosis. No discrete hepatic lesion. Dictated by: Miguel A Sanchez M.D. on 07/04/2023 at 18:01 ECG Data Interpretation: Sinus rhythm rate 111 FL interval 226 QRS 78 QTC 546 MDM Narrative Medical decision making narrative: Patient 47-year-old male history of diabetes presenting today with bilateral groin pain and lower abdominal pain. Had vomiting possible gastroparesis though not yet diagnosed with that. The vomiting is not new. He is decreased bowel habits. Having sharp shooting pain. He is afebrile tachycardic but in pain. No hypotension Blood work has been reviewed he has no leukocytosis anemia no evidence of DKA urinalysis is negative CT scan does not show any evidence of obstruction nephrolithiasis diverticulitis On exam his testicles are not significantly tender swollen no evidence hernia. Rectal exam does not show any erythema or abscess perineal area also benign Patient is really complaining of spasming like feeling in his rectum that is radiating into his testicles. He feels like his perineal area is any spasm. He was previously having lots of diarrhea since January. Over the last few days he has had some constipation. It does look like he was prescribed some hydrocodone on June 22. CT does not report any sort of constipation. Patient has an appointment with PCP tomorrow afternoon Discharge Plan Departure Patient Disposition: Home Clinical Impression: Pain, rectal Instructions: DI for Rectal Injury Activity Restrictions/Additional Instructions: *You have been diagnosed with rectal pain *What to do: At this time it is unclear what is causing her severe rectal pain. CT is overall reassuring no obvious sign of significant constipation. No obstruction. It does sound like a muscle spasm. *Continue to take medications as directed Methocarbamol 750 mg every 8 hours if needed for muscle spasm Magnesium citrate only if constipated *Follow up with your primary care provider in 2-3 days or call [phone] Fajardo tomorrow as scheduled *Return to ER if you should have increasing pain fever testicular pain or any new, worsening or concerning symptoms Prescriptions: New methocarbamol 750 mg tablet 750 mg PO Q8H PRN (Reason: muscle spasm) Qty: 14 0RF No Action losartan 100 mg Tablet 100 mg PO DAILY potassium chloride [Klor-Con M20] 20 mEq Tablet,Er Particles/Crystals 40 meq PO BIDWM Qty: 60 1RF amoxicillin-pot clavulanate 875-125 mg Tablet 1 tab PO BID Qty: 20 0RF fluoxetine 40 mg capsule 40 mg PO DAILY Patient Comments: TAKE ONE CAPSULE BY MOUTH ONE TIME DAILY trazodone 50 mg tablet 50 mg PO DAILY Patient Comments: TAKE 1/2 TO ONE TABLET BY MOUTH EVERY NIGHT NEEDED fluoxetine 20 mg capsule 20 mg PO DAILY Patient Comments: TAKE THREE CAPSULES BY MOUTH DAILY hydrocodone-acetaminophen 5-325 mg tablet 1 tab PO Q4HR PRN (Reason: Pain (Scale Score 1-3)) Referrals: Ronni Fajardo MD [Primary Care Provider] - Stand Alone Forms: Patient Portal/API
--- NOTE | 2023-07-04 17:30 | DI.CT.S_ITS ---
PROCEDURE: CT ABDOMEN PELVIS W CON INDICATIONS: severe lower ab pain, difficulty BM and urination TECHNIQUE: After the administration of intravenous contrast, axial sections acquired from the lung bases to the pubic symphysis. Coronal and sagittal reformats were performed. For radiation dose reduction, the following was used: automated exposure control, adjustment of mA and/or kV according to patient size. COMPARISON: [facility], CT, CT ABDOMEN PELVIS W CON, 01/20/2023, 1:36. FINDINGS: Image quality: Diagnostic. Lower Chest: No significant findings. ABDOMEN: Liver: Mild hepatomegaly and moderate hepatic steatosis, no discrete hepatic lesion. Gallbladder: No radiopaque gallstones or wall thickening. Biliary ducts: No biliary dilation. Pancreas: No ductal dilation. Spleen: Size is within normal limits. Adrenal Glands: No adrenal nodules. Kidneys and Ureters: No hydronephrosis. No solid mass. No complex renal cystic lesion which requires follow up. Stomach and Bowel: There is no bowel obstruction. No abnormal small bowel or gastric wall thickening. No abnormal colonic wall thickening. No abscess collection. Descending colon and sigmoid diverticulosis is seen without definite colonic wall thickening or significant pericolonic fat stranding. No abscess collection. Peritoneum: No abnormal intraperitoneal fluid. No free air. Ventral Wall: No hernia. Abdominal Nodes: No retroperitoneal or mesenteric adenopathy by size criteria. Vessels: Aorta and inferior vena cava are normal in size. PELVIS: Pelvic Organs: Unremarkable. Bladder: Unremarkable. Pelvic Nodes: No enlarged lymph nodes. Miscellaneous: No inguinal hernias are seen. Bones: No aggressive osseous abnormality. No acute vertebral body compression fracture. IMPRESSION: 1. No bowel obstruction or abnormal bowel wall thickening. Colonic diverticulosis without CT evidence of acute diverticulitis. No abscess collection. No free fluid or free air. 2. No renal stones or hydronephrosis. 3. Hepatomegaly and hepatic steatosis. No discrete hepatic lesion. Dictated by: Miguel A Sanchez M.D. on 07/04/2023 at 18:01 Approved by: Miguel A Sanchez M.D. on 07/04/2023 at 18:04
[2023-07-04] MEDS: HYDROMORPHONE 0.5 MG INJ IV (17:46)
[2023-07-04] MEDS: KETOROLAC 30 MG/ML VIAL 15 MG IV (19:13)
[2023-07-04] MEDS: CYCLOBENZAPRINE 10 MG TABLET 5 MG PO (19:13)
[2023-07-04] MEDS: CYCLOBENZAPRINE 10 MG PREPACK 1 BOTTLE MISC (19:14)
[2023-07-04] MEDS: MAGNESIUM CITRATE 300 ML SOLUTION PO (19:25)
== END 2023-07-04 19:34 | disposition home or self-care (01) ==
PROVIDERS: Emergency Provider Emergency Medicine; PCP Family Medicine
DX: K62.89 Other specified diseases of anus and rectum (principal); N50.812 Left testicular pain; N50.811 Right testicular pain; R11.2 Nausea with vomiting, unspecified
CPT/HCPCS: 36415; 74177; 80053; 81003; 83690; 85025; 93005; 96361; 96374; 96375; 96376; 99284; J1170; J1885; J2405

== ENCOUNTER → 2023-10-25 11:17 | Outpatient (CLI) | payer OTHER, MEDICAID, SELFPAY ==
[2023-01-20 03:35] VITALS: BMI 37.3
--- NOTE | 2023-10-25 11:19 | DI.CT.S_ITS ---
PROCEDURE: CT ABDOMEN PELVIS W CON INDICATIONS: NAUSEA/VOMITING TECHNIQUE: After the administration of intravenous contrast, axial sections acquired from the lung bases to the pubic symphysis. Coronal and sagittal reformats were performed. For radiation dose reduction, the following was used: automated exposure control, adjustment of mA and/or kV according to patient size. COMPARISON: [facility], CT, CT ABDOMEN PELVIS W CON, 07/04/2023, 17:38. FINDINGS: Image quality: Diagnostic. Lower Chest: No significant findings. ABDOMEN: Liver: No solid mass. Liver measures 18 cm with significant steatosis. Gallbladder: No radiopaque gallstones or wall thickening. Biliary ducts: No biliary dilation. Pancreas: No ductal dilation. Spleen: Size is within normal limits. Adrenal Glands: No adrenal nodules. Kidneys and Ureters: No hydronephrosis. No solid mass. No complex renal cystic lesion which requires follow up. Stomach and Bowel: No obstruction. There is a thickened appearance of the cecum/proximal ascending colon with minimal appearance of pericolonic stranding Scattered colonic diverticular present most notably in the left colon. Peritoneum: No abnormal intraperitoneal fluid. No free air. Ventral Wall: No significant ventral hernia. Abdominal Nodes: No retroperitoneal or mesenteric adenopathy by size criteria. Vessels: Aorta and inferior vena cava are normal in size. PELVIS: Pelvic Organs: Unremarkable. Bladder: No bladder wall thickening, accounting for underdistention. Pelvic Nodes: No enlarged lymph nodes. Miscellaneous: Bilateral fat containing inguinal hernias are seen. Bones: No aggressive osseous abnormality. IMPRESSION: Minimal appearance of thickening within the cecum/ascending colon with very minimal pericolonic inflammatory change. Overall appearance is suspicious for developing early colitis secondary to infection or inflammation. Diverticulosis is present most prominent in the left colon. Dictated by: Marley Haji M.D. on 10/25/2023 at 14:14 Approved by: Marley Haji M.D. on 10/25/2023 at 14:16
[2023-10-25 11:44] LABS: Estimated Glomerular Filt Rate > 60 mL/min (>60)
== END ==
PROVIDERS: Radiology Diagnostic Radiology; PCP Family Medicine; Referring Provider Internal Medicine Gastroenterology; Visit Provider Internal Medicine Gastroenterology
DX: K57.30 Diverticulosis of large intestine without perforation or abscess without bleeding (principal); K40.20 Bilateral inguinal hernia, without obstruction or gangrene, not specified as recurrent; R11.2 Nausea with vomiting, unspecified; K76.0 Fatty (change of) liver, not elsewhere classified; R30.1 Vesical tenesmus; R19.8 Other specified symptoms and signs involving the digestive system and abdomen; Z98.890 Other specified postprocedural states
CPT/HCPCS: 36415; 74177; 82565; Q9967

== ENCOUNTER 2023-11-18 15:14 | Emergency (ER) | payer OTHER, MEDICAID, SELFPAY ==
[2023-01-20 03:35] VITALS: BMI 37.3
--- NOTE | 2023-11-18 16:24 | DI.RAD.S_ITS ---
PROCEDURE: XR CHEST 1V INDICATIONS: mouth pain/near syncope TECHNIQUE: One view of the chest was acquired. COMPARISON: [facility], CR, XR CHEST 2V, 02/23/2023, 14:01. FINDINGS: Surgical changes and devices: None. Lungs and pleura: Lungs are clear. No pleural effusions or pneumothorax. Mediastinum: Mediastinal contours appear normal. Heart size is normal. Bones and chest wall: No suspicious bony lesions. Overlying soft tissues appear unremarkable. IMPRESSION: No acute cardiopulmonary abnormality is seen. Dictated by: Mitchel Hayden M.D. on 11/18/2023 at 15:37 Approved by: Mitchel Hayden M.D. on 11/18/2023 at 15:37
[2023-11-18 17:09] LABS: Prothrombin Time 11.8 SECONDS (9.4-12.5)
[2023-11-18 17:12] LABS: PTT Partial Thromboplastin Tim 32 SECONDS (25.1-36.5)
[2023-11-18 17:14] LABS: Alanine Aminotransferase 209 IU/L (<50); Albumin 3.5 g/dL (3.5-5.0); Albumin Globulin Ratio 1.1 (1.0-2.8); Alkaline Phosphatase 97 U/L (38-126); Aspartate Aminotransferase 357 IU/L (17-59); BUN Creatinine Ratio 13.4 (6-22); Basophils Absolute Auto 100 /uL (0-100); Bilirubin Total 0.6 mg/dL (0.2-1.3); Blood Urea Nitrogen 18 mg/dL (9-20); Calcium 7.7 mg/dL (8.4-10.2); Carbon Dioxide 26 mmol/L (22-32); Chloride 110 mmol/L (98-107); Creatine Kinase 70 U/L (55-170); Eosinophils Absolute Auto 100 /uL (0-450); Eosinophils Percent Auto 0.9 % (2-4); Estimated Glomerular Filt Rate > 60 mL/min (>60); Globulin 3.1 g/dL (1.7-4.1); Glucose 90 mg/dL (70-100); HEMOLYSIS 17 (0-50); Hematocrit 35.6 % (41-53); Hemoglobin 12.1 g/dL (13.5-17.5); Lipase 166 U/L (23-300); Lymphocytes Absolute Auto 1400 /uL (1100-4500); Lymphocytes Percent Auto 23.5 % (25-40); Magnesium 1.7 mg/dL (1.6-2.3); Mean Corpuscular Hemoglobin 37.6 PG (26-34); Mean Corpuscular Volume 110.6 fL (80-100); Monocytes Absolute Auto 500 /uL (0-900); Monocytes Percent Auto 8.1 % (3-14); Neutrophils Absolute Auto 4100 /uL (1500-7000); Neutrophils Percent Auto 66.5 % (50-75); Platelet Count 169 X10^3/uL (150-400); Potassium 3.8 mmol/L (3.4-5.1); Red Blood Cell Count 3.21 X10^6/uL (4.5-5.9); Sodium 141 mmol/L (137-145); Total Protein 6.6 g/dL (6.3-8.2); White Blood Cell Count 6.1 X10^3/uL (4.5-11.0)
[2023-11-18 17:17] LABS: Add Manual Diff / Slide Review SLIDE REVIEW
[2023-11-18 17:26] LABS: Troponin I 0.012 ng/mL (0.01-0.034)
[2023-11-18 17:39] LABS: Macrocytosis 1+
[2023-11-18 17:50] LABS: Lactate (Lactic Acid) 2.7 mmol/L (0.7-2.1)
[2023-11-18 18:40] VITALS: BP 139/76; PULSE 79; RESP 18; O2SAT 96
--- NOTE | 2023-11-18 19:14 | ED.WEAKNESS ---
HPI - Weakness General Chief complaint: Weakness Stated complaint: mouth pain, near syncope Time Seen by Provider: 11/18/23 17:42 History of Present Illness HPI Narrative: 47-year-old male with history of diabetes, hypertension presents by private vehicle from home for generalized weakness, near fainting spells, and decreased p.o. intake. Patient states that everything he puts in his mouth taste like battery acid and this is caused him to not be eating or drinking very much. He states he feels very tired and unwell generally. He has an appointment with his primary care doctor in 2 days, but because of how poorly he was feeling today he decided to come to the ER for evaluation. Denies fevers, nausea, vomiting, cough, shortness of breath, other complaints at this time. Related Data Home Medications Medication Instructions Recorded Confirmed hydrocodone 5 mg-acetaminophen 325 1 tab PO Q4HR PRN Pain (Scale 02/21/19 01/20/23 mg tablet Score 1-3) fluoxetine 20 mg capsule 20 mg PO DAILY 05/17/22 01/20/23 fluoxetine 40 mg capsule 40 mg PO DAILY 05/17/22 01/20/23 trazodone 50 mg tablet 50 mg PO DAILY 05/17/22 01/20/23 losartan 100 mg tablet 100 mg PO DAILY 01/21/23 01/21/23 Previous Rx's Medication Instructions Recorded amoxicillin 875 mg-potassium 1 tab PO BID #20 tabs 01/25/23 clavulanate 125 mg tablet potassium chloride 20 mEq 40 meq (2 x 20 mEq) PO BIDWM #60 01/25/23 tablet,extended tabs release(part/cryst) (Klor-Con M) methocarbamol 750 mg tablet 750 mg PO Q8H PRN muscle spasm #14 07/04/23 tabs Allergies Allergy/AdvReac Type Severity Reaction Status Date / Time No Known Drug Allergies Allergy Verified 05/17/22 10:56 Review of Systems Review of Systems Narrative: See HPI Patient History Medical History Chronic pain after traumatic injury Pre-diabetes Nocturnal hypoxemia Snoring Obstructive sleep apnea Morbid obesity with body mass index (BMI) of 40.0 to 49.9 Surgical History History of surgery S/P excision of lipoma (08/13/19) Social History household members: none Smoking Status: Current every day smoker alcohol intake: current Smoking Status: Current every day smoker tobacco type: e-cigarettes alcohol intake frequency: 0-2 drinks per day Alcohol type: beer Substance Use Type: does not use Exam Initial Vital Signs Initial Vital Signs: Vital Signs Pulse Rate 79 11/18/23 18:40 Respiratory Rate 18 11/18/23 18:40 Blood Pressure 139/76 11/18/23 18:40 Pulse Oximetry 96 11/18/23 18:40 Oxygen Delivery Method Room Air 11/18/23 18:40 Const: Awake, alert, no acute distress, nontoxic appearing Cardiac: regular rate, regular rhythm RESP: unlabored, clear bilaterally, no wheezing GI: Soft, nontender, nondistended, no rebound, no guarding MSK: Atraumatic, full range of motion, pulses equal Skin: Warm, Dry, intact, no rashes Neuro: AO x3, CN II-XII grossly intact, moves all extremities Course Orders Ordered: Discontinued Medications Sodium Chloride (Normal Saline 0.9%) 1,000 mls @ 1,000 mls/hr IV BOLUS ONE Stop: 11/18/23 20:12 Last Infusion: 11/18/23 21:06 Dose: Infused Documented By: Admin: 11/18/23 19:41 Dose: 1,000 mls/hr Documented By: ALEKSANDRA Sodium Chloride (Normal Saline 0.9%) 1,000 mls @ 1,000 mls/hr IV BOLUS ONE Stop: 11/18/23 21:43 Last Infusion: 11/18/23 22:23 Dose: Infused Documented By: Admin: 11/18/23 21:05 Dose: 1,000 mls/hr Documented By: ALEKSANDRA Vital Signs Vital signs: Vital Signs - 8 hr 11/18/23 18:40 Pulse Rate 79 Respiratory Rate 18 Blood Pressure 139/76 Pulse Oximetry 96 Oxygen Delivery Method Room Air MDM - Weakness Lab Data 11/18/23 16:52 11/18/23 16:52 Labs: Lab Results 11/18/23 11/18/23 11/18/23 Range/Units 16:52 19:28 19:30 WBC 6.1 (4.5-11.0) X10^3/uL RBC 3.21 L (4.5-5.9) X10^6/uL Hgb 12.1 L (13.5-17.5) g/dL Hct 35.6 L (41-53) % MCV 110.6 H (80-100) fL MCH 37.6 H (26-34) PG MCHC 34.0 (30-36) % RDW 14.0 (11.6-14.8) % Plt Count 169 (150-400) X10^3/uL Neut % (Auto) 66.5 (50-75) % Lymph % (Auto) 23.5 L (25-40) % Woodruff % (Auto) 8.1 (3-14) % Eos % (Auto) 0.9 L (2-4) % Baso % (Auto) 1.0 (0-2) % Neut # (Auto) 4100 (0557-4359) /uL Lymph # (Auto) 1400 (1667-9959) /uL Woodruff # (Auto) 500 (0-900) /uL Eos # (Auto) 100 (0-450) /uL Baso # (Auto) 100 (0-100) /uL RBC Morphology See below Macrocytosis 1+ H PT 11.8 (9.4-12.5) SECONDS INR 1.0 (0.9-1.3) APTT 32 (25.1-36.5) SECONDS Sodium 141 (137-145) mmol/L Potassium 3.8 (3.4-5.1) mmol/L Chloride 110 H (98-107) mmol/L Carbon Dioxide 26 (22-32) mmol/L BUN 18 (9-20) mg/dL Creatinine 1.34 H (0.66-1.25) mg/dL Estimated GFR > 60 (>60) mL/min BUN/Creatinine Ratio 13.4 (6-22) Glucose 90 (70-100) mg/dL Lactate 2.7 H 2.4 H (0.7-2.1) mmol/L Calcium 7.7 L (8.4-10.2) mg/dL Magnesium 1.7 (1.6-2.3) mg/dL Total Bilirubin 0.6 (0.2-1.3) mg/dL AST 357 H (17-59) IU/L ALT 209 H (<50) IU/L Alkaline Phosphatase 97 (38-126) U/L Total Creatine Kinase 70 (55-170) U/L Troponin I 0.012 (0.01-0.034) ng/mL Total Protein 6.6 (6.3-8.2) g/dL Albumin 3.5 (3.5-5.0) g/dL Globulin 3.1 (1.7-4.1) g/dL Albumin/Globulin Ratio 1.1 (1.0-2.8) Lipase 166 (23-300) U/L Chlamy pneumoniae PCR Not detected (Not Detect) Adenovirus (PCR) Not detected (Not Detect) B.parapertussis DNA PCR Not detected (Not Detecte) Coronavirus OC43 (PCR) Not detected (Not Detect) Coronavirus HKU1 (PCR) Not detected (Not Detect) Coronavirus 229E (PCR) Not detected (Not Detect) SARS-CoV-2 (PCR) Not detected (Not Detecte) Coronavirus NL63 (PCR) Not detected (Not Detect) Monoscreen Negative (Negative) Human Metapneumovir PCR Not detected (Not Detect) Influenza A (PCR) Not detected (Not Detect) Influenza Type B (PCR) Not detected (Not Detect) M. pneumoniae (PCR) Not detected (Not Detect) Parainfluenza 1 (PCR) Not detected (Not Detect) Parainfluenza 2 (PCR) Not detected (Not Detect) Parainfluenza 3 (PCR) Not detected (Not Detect) Parainfluenza 4 (PCR) Not detected (Not Detect) RSV (PCR) Not detected (Not Detect) Entero/Rhino (PCR) Not detected (Not Detect) 11/18/23 Range/Units 22:36 WBC (4.5-11.0) X10^3/uL RBC (4.5-5.9) X10^6/uL Hgb (13.5-17.5) g/dL Hct (41-53) % MCV (80-100) fL MCH (26-34) PG MCHC (30-36) % RDW (11.6-14.8) % Plt Count (150-400) X10^3/uL Neut % (Auto) (50-75) % Lymph % (Auto) (25-40) % Woodruff % (Auto) (3-14) % Eos % (Auto) (2-4) % Baso % (Auto) (0-2) % Neut # (Auto) (8995-7328) /uL Lymph # (Auto) (9627-9076) /uL Woodruff # (Auto) (0-900) /uL Eos # (Auto) (0-450) /uL Baso # (Auto) (0-100) /uL RBC Morphology Macrocytosis PT (9.4-12.5) SECONDS INR (0.9-1.3) APTT (25.1-36.5) SECONDS Sodium (137-145) mmol/L Potassium (3.4-5.1) mmol/L Chloride (98-107) mmol/L Carbon Dioxide (22-32) mmol/L BUN (9-20) mg/dL Creatinine (0.66-1.25) mg/dL Estimated GFR (>60) mL/min BUN/Creatinine Ratio (6-22) Glucose (70-100) mg/dL Lactate 2.3 H (0.7-2.1) mmol/L Calcium (8.4-10.2) mg/dL Magnesium (1.6-2.3) mg/dL Total Bilirubin (0.2-1.3) mg/dL AST (17-59) IU/L ALT (<50) IU/L Alkaline Phosphatase (38-126) U/L Total Creatine Kinase (55-170) U/L Troponin I (0.01-0.034) ng/mL Total Protein (6.3-8.2) g/dL Albumin (3.5-5.0) g/dL Globulin (1.7-4.1) g/dL Albumin/Globulin Ratio (1.0-2.8) Lipase (23-300) U/L Chlamy pneumoniae PCR (Not Detect) Adenovirus (PCR) (Not Detect) B.parapertussis DNA PCR (Not Detecte) Coronavirus OC43 (PCR) (Not Detect) Coronavirus HKU1 (PCR) (Not Detect) Coronavirus 229E (PCR) (Not Detect) SARS-CoV-2 (PCR) (Not Detecte) Coronavirus NL63 (PCR) (Not Detect) Monoscreen (Negative) Human Metapneumovir PCR (Not Detect) Influenza A (PCR) (Not Detect) Influenza Type B (PCR) (Not Detect) M. pneumoniae (PCR) (Not Detect) Parainfluenza 1 (PCR) (Not Detect) Parainfluenza 2 (PCR) (Not Detect) Parainfluenza 3 (PCR) (Not Detect) Parainfluenza 4 (PCR) (Not Detect) RSV (PCR) (Not Detect) Entero/Rhino (PCR) (Not Detect) MDM Narrative Medical decision making narrative: Nontoxic patient presenting for general malaise and unwell feeling for the last several days. States that he feels lightheaded and like he was about to pass out several times per day. Bad taste in his mouth leading to decreased p.o. intake. No physical exam abnormalities to suggest obvious cause of symptoms. Patient reports chronic abdominal pain that is no different than his baseline, abdomen is soft, no reproducible tenderness to light or deep palpation. Laboratory work reviewed, WBC count 6.1, hemoglobin 12.1, platelets 169, INR 1.0, sodium 141, potassium 3.8, creatinine 1.34, lactic acid 2.7 (repeat 2.4, 2.3), T bili 0.6, AST 357, ALT 209, alk phos 97. Troponin 0.012, CK 70, viral panel negative for various viruses, Monospot negative. Patient received several L of IV fluids, has remained hemodynamically stable. Patient's liver enzymes elevated from previous, however no signs of acute liver injury or failure. On previous imaging studies it has been noted that patient has a severely fatty liver, and this could be a sequela of his known fatty liver disease. No obvious source of patient's symptoms. Patient informed of laboratory results, informed of elevated liver enzymes compared to previous. Patient states that he has an appointment with his PCP in 2 days and he will keep that appointment so that he may follow up from his ER visit. ED return precautions discussed at bedside. Patient expressed understanding of the plan and is in agreement at this time. All questions answered at the time of discharge. Discharge Plan Departure Patient Disposition: Home Clinical Impression: Episode of generalized weakness, Elevated liver enzymes Instructions: DI for Nonalcoholic Fatty Liver Disease Activity Restrictions/Additional Instructions: Your laboratory work today showed you had elevated liver enzymes. Your CT scans in the past have noted that you have a fatty liver, and this may be related. I do not have an obvious cause for your symptoms at this time based on the workup here in the ED. I recommend close follow up with the primary care doctor. Drink plenty of fluids and make sure to stay hydrated. Prescriptions: No Action losartan 100 mg Tablet 100 mg PO DAILY potassium chloride [Klor-Con M20] 20 mEq Tablet,Er Particles/Crystals 40 meq PO BIDWM Qty: 60 1RF amoxicillin-pot clavulanate 875-125 mg Tablet 1 tab PO BID Qty: 20 0RF fluoxetine 40 mg capsule 40 mg PO DAILY Patient Comments: TAKE ONE CAPSULE BY MOUTH ONE TIME DAILY trazodone 50 mg tablet 50 mg PO DAILY Patient Comments: TAKE 1/2 TO ONE TABLET BY MOUTH EVERY NIGHT NEEDED fluoxetine 20 mg capsule 20 mg PO DAILY Patient Comments: TAKE THREE CAPSULES BY MOUTH DAILY methocarbamol 750 mg tablet 750 mg PO Q8H PRN (Reason: muscle spasm) Qty: 14 0RF hydrocodone-acetaminophen 5-325 mg tablet 1 tab PO Q4HR PRN (Reason: Pain (Scale Score 1-3)) Referrals: Ronni Fajardo MD [Primary Care Provider] - Stand Alone Forms: Patient Portal/API
[2023-11-18 19:18] LABS: Reflexed Lactate in 2 Hours Y
[2023-11-18 19:31] LABS: Monotest Negative (Negative)
[2023-11-18] MEDS: SODIUM CHLORIDE 0.9% 1,000 ML 1000 ML IV ×2 (19:41→21:05)
[2023-11-18 19:43] LABS: Lactate 2HR (Lactic Acid Rflx) 2.4 mmol/L (0.7-2.1)
[2023-11-18 21:16] LABS: Adenovirus Not Detected (Not Detect); B. parapertussis Not Detected (Not Detecte); Bordetella pertussis Not Detected (Not Detect); Chlamydophila pneumoniae Not Detected (Not Detect); Coronavirus 229E Not Detected (Not Detect); Coronavirus HKU1 Not Detected (Not Detect); Coronavirus NL 63 Not Detected (Not Detect); Coronavirus OC43 Not Detected (Not Detect); Human Metapneumovirus Not Detected (Not Detect); Human Rhinovirus/Enterovirus Not Detected (Not Detect); Influenza A(No subj detected) Not Detected (Not Detect); Influenza B Not Detected (Not Detect); Mycoplasma pneumoniae Not Detected (Not Detect); Parainfluenza Virus 1 Not Detected (Not Detect); Parainfluenza Virus 2 Not Detected (Not Detect); Parainfluenza Virus 3 Not Detected (Not Detect); Parainfluenza Virus 4 Not Detected (Not Detect); Respiratory Syncytial Virus Not Detected (Not Detect); SARS- CoV-2 Not Detected (Not Detecte)
--- NOTE | 2023-11-18 22:24 | PC.NURSE ---
repeat lactate drawn and sent to lab, pt ambulatory to bathroom without assistance, at bedside, updated pt and family on plan of care
[2023-11-18 22:55] LABS: Lactate (Lactic Acid) 2.3 mmol/L (0.7-2.1)
[2023-11-19 00:17] LABS: Reflexed Lactate in 2 Hours Y
== END 2023-11-18 23:24 | disposition home or self-care (01) ==
PROVIDERS: Emergency Medicine; Emergency Provider Emergency Medicine; PCP Family Medicine
DX: R53.1 Weakness (principal); R74.01 Elevation of levels of liver transaminase levels; R42 Dizziness and giddiness
CPT/HCPCS: 36415; 71045; 80053; 82550; 83605; 83690; 83735; 84484; 85025; 85610; 85730; 86318; 87633; 93005; 93010; 99284